=== PATIENT | female | born 2000 | race Caucasian/White ===

== ENCOUNTER 2019-09-14 13:32 | Outpatient (CLI) | payer OTHER, SELFPAY ==
--- NOTE | 2019-09-14 13:43 | CT_ITS ---
WS: [id number] CT ABDOMEN PELVIS TECHNIQUE: Contrast-enhanced CT of the abdomen and pelvis with coronal and sagittal reformatted image s. CLINICAL INFORMATION: RLQ ABDOMINAL PAIN COMPARISON: March 06, 2019 DLP: 572.[address] scans at [facility] use at least one of these dose optimization techniques: automat ed exposure control; mA and/or kV adjustment per patient size (includes targeted exams where dose is matched to clinical indication); or iterative reconstruction. FINDINGS: Liver is normal in appearance. Normal portal vein and splenic vein. Cholecystectomy clips. Normal spl een. Normal gastroesophageal junction. Lung bases are well aerated. Adrenal glands are normal. Normal caliber abdominal aorta. Normal renal parenchymal enhancement. No hydronephrosis. No abdominal lymphadenopathy. IUD appears in normal position. Small amount of free fluid in the cul-d e-sac. Enhancing right ovarian cyst measuring 2.4 x 2.7 CM. Multifollicular left ovary with dominant follicl e measuring 14 mm. Sigmoid diverticulosis. No evidence of acute diverticulitis. Appendix is not defin itely visualized although no evidence of acute appendicitis. Low-lying cecum in the pelvis. CT/CT abdomen pelvis w con* [id number] IMPRESSION: 1. Enhancing right ovarian hemorrhagic or corpus luteum cyst. Small amount of fluid in the cul-de-sac. Ovarian cyst measures 2.4 x 2.7 cm. 2. IUD appears in normal position. 3. Normal bilateral renal parenchymal enhancement. No hydronephrosis. 4. Appendix is not visualized. No evidence of acute appendicitis. 5. Cholecystectomy clips. 6. Sigmoid diverticulosis. No evidence of acute diverticulitis.
[2019-09-14] MEDS: iohexol 300 mg/mL 50 mL Btl PO (15:19)
[2019-09-14] MEDS: iohexol 300 mg/mL 100 mL Btl 95 ML IV (15:35)
== END 2019-09-14 13:33 | disposition home or self-care (01) ==
LOC: RAD 13:34
PROVIDERS: Family Provider Family Medicine; PCP Family Medicine; Visit Provider Physician Assistant
DX: N83.209 Unspecified ovarian cyst, unspecified side (principal); K57.30 Diverticulosis of large intestine without perforation or abscess without bleeding
CPT/HCPCS: 74177

== ENCOUNTER 2019-09-15 15:34 | Emergency (ER) | payer OTHER, SELFPAY ==
[2019-09-15] VITALS (16 sets, daily range): BP systolic 93–112; BP diastolic 50–82; PULSE 68–119; RESP 18; TEMP 36.7; O2SAT 96–100; BMI 22.8
--- NOTE | 2019-09-15 15:45 | USR_ITS ---
PROCEDURE INFORMATION: Exam: US Pelvis Complete, Transabdominal Exam date and time: 09/15/2019 4:14 PM Age: 19 years old Clinical indication: Pelvic pain; Patient HX: Iud in place. Pain for several days; Additional info: Abd pain. Non latex probe cover used for tv exam TECHNIQUE: Imaging protocol: Real-time transabdominal pelvic ultrasound with image documentation. Complete exam. COMPARISON: CT abdomen pelvis w con* [id number] 09/14/2019 3:45 PM FINDINGS: Uterus/cervix: The uterus measures 6.4 x 2.6 x 3.6 cm. Endometrial thickness 4.9 mm. IUD in the fundal endometrium. Right adnexa: The right ovary measures 5.1 x 4.2 x 3.0 cm and contains a 2.7 cm dominant follicle and small follicles. Left adnexa: The left ovary measures 2.5 x 2.7 x 3.4 cm. Normal Doppler flow and follicles. 1.5 cm hemorrhagic follicle versus corpus luteum. Free fluid: None. Bladder: Normal. US/US pelvic complete* [id number] IMPRESSION: 1. 2.7 cm simple dominant follicle in the right ovary. This requires no follow-up. 2. 1.5 cm hemorrhagic follicle versus corpus luteum in the right ovary. This requires no follow-up.
--- NOTE | 2019-09-15 16:01 | ED_ITS ---
Entered by Mihaela Viveros, acting as scribe for Michael Raymundo MD, [facility] Sep 15, 2019 15:34 HPI - Abdominal Pain General: Chief Complaint: Abdominal Pain Stated Complaint: RIGHT SIDE PAIN Time Seen by Provider: 09/15/19 16:01 Source: patient Mode of arrival: ambulatory Limitations: no limitations History of Present Illness: HPI narrative: 19 yo Female presents to ED with complaint of abdominal pain, nausea, and vomiting. Pt states that she has had this pain since 0200 yesterday morning. Pt states that she went to [facility] and was sent to [facility] to get an out patient CT done. Pt states that she has called [facility] 3 times today to get the results but was told that the provider wasn't in and she had not gotten the results. Pt states that she came in to try to find out what is causing her pain and vomiting. MD elicited complaint: abdominal pain Onset (ago): day(s) Pain Consistency: constant Location: RLQ Pain scale (0-10): 4 Radiation: R flank Migration to: no migration Exacerbating factors: movement Relieving factors: nothing Associated Symptoms: Reports nausea and vomiting; Denies chills, dysuria and fever(s) Related Data: Date of Last Menstrual Period: 07/31/19 Review of Systems General: Reports: 10 or more systems reviewed and unremarkable except in HPI and below Const: Denies: fever, chills or body aches Eyes: Denies: change in vision, blurry vision or blind spots ENMT: Denies: throat pain, enlarged tonsils, painful swallowing, hoarseness, mouth pain or swelling of lips/tongue Card: Denies: chest pain, palpitations, irregular heart rhythm, edema or swelling of feet/ankles Resp: Denies: shortness of breath, productive cough or non-productive cough GI: Reports: abdominal pain, nausea and vomiting : Denies: flank pain, difficulty urinating, painful urination, urinary frequency, urinary urgency or urinary hesitancy Musc: Denies: neck pain, back pain, extremity pain, extremity swelling or joint pain Skin/Breast: Denies: rash, itching or redness Neuro: Denies: headache, numbness in extremities or weakness in extremities Endo: Denies: excessive urination, excessive thirst or tired all the time PFSH ED PFSH: Statuses (acute, chronic, etc) shown below reflect problem list status as previously entered and may not be historically accurate Social History Smoking and tobacco status: never smoked Female Reproductive History: Date of last menstrual period: 07/31/19 Physical Exam Const: COMMON NORMALS: average body habitus, oriented x3, no limitations, healthy appearing, alert and well nourished GENERAL APPEARANCE: in distress (Painful) HENMT: COMMON NORMALS: normocephalic, head/scalp atraumatic and moist oral mucous membranes HEAD & SCALP: normocephalic and atraumatic Eye: COMMON NORMALS: PERRL, EOMs intact bilaterally, conjunctivae normal and no scleral icterus CONJUNCTIVA: Yes conjunctivae normal PUPIL: Yes PERRL Neck/C-Spine: COMMON NORMALS: full ROM, supple, no meningeal signs, no JVD and no carotid bruits Chest: COMMONS NORMALS: inspection of chest normal and palpation of chest normal Resp: COMMON NORMALS: normal respiratory effort, no retractions, no use of accessory muscles, clear to auscultation bilaterally and percussion normal AUSCULTATION: clear to auscultation bilaterally PERCUSSION: percussion normal Cardio: COMMON NORMALS: no JVD, regular rate, regular rhythm, S1 normal heart sound, S2 normal heart sound, no gallops, no clicks, no murmurs, no rub and peripheral pulses 2+ throughout RATE: regular rate RHYTHM: regular rhythm HEART SOUNDS: S1 normal and S2 normal PERIPHERAL PULSES: pulses 2+ throughout GI: COMMON NORMALS: normal to inspection, nondistended, normoactive bowel sounds, soft to palpation, no hepatosplenomegaly, no masses and no bruits PALPATION: Yes soft, Yes tender Details: RLQ, Yes guarding, No rigid and Yes no hepatosplenomegaly : COMMON NORMALS: Yes no CVA tenderness BLADDER/KIDNEY EXAM: Yes no CVA tenderness Back/Pelvis: COMMON NORMALS: no CVA tenderness Extremity: COMMON NORMALS: normal to inspection, full ROM, normal capillary refill, no calf tenderness and no pedal edema Neuro: COMMON NORMALS: oriented x3 SENSORIUM/ORIENTATION: Yes alert MENINGEAL SIGNS: Yes no meningeal signs Skin: COMMON NORMALS: no rashes or lesions noted, no wounds, skin turgor normal, no jaundice, no petechiae and no mottling GENERAL SKIN EXAM: no rashes or lesions noted and turgor normal Course Reevaluation(s): Reevaluation #1: Pain relieved following fentanyl injection. She is currently pain-free. She is ready to go home. Time: 21:10 Vital Signs: Vital signs: Vital Signs Temperature 98.1 F 09/15/19 15:39 Pulse Rate 94 09/15/19 20:49 Respiratory Rate 18 09/15/19 20:49 Blood Pressure 93/54 09/15/19 20:49 Pulse Oximetry 97 09/15/19 20:49 MDM - Abdominal Pain MDM Narrative: Medical decision making narrative: 19-year-old female patient who presents to the emergency department with right lower quadrant pain. She was seen by her primary care provider yesterday for the same thing and she was sent for a CT scan of her abdomen. She had not received the results today despite calling her primary care provider's office several times. She therefore came to the emergency department to obtain the results. She was doing quite a bit of pain. Ultrasound done in the ED today showed an ovarian cyst without rupture. Same thing that was resulted on her CT scan. She was given intravenous Toradol which did not help her pain but her pain was relieved following and intravenous dose of fentanyl. She remained stable and vital signs remained stable throughout her ED stay. She will be discharged home on a short course of narcotics. She voiced understanding and is in agreement with the plan. She will follow-up with her primary care provider Medical Records: Attestation: I reviewed the patient's medical records. Lab Data: Attestation: I reviewed the patient's lab results. Labs: Lab Results 09/15/19 09/15/19 09/15/19 Range/Units 16:09 16:18 16:18 WBC 5.1 (4.0-10.0) 10^3/ uL RBC 4.97 (4.1-5.3) 10^6/u L Hgb 14.0 (11.5-15.3) g/dL Hct 42.5 (37.0-47.0) % MCV 85.5 (81-99) fL MCH 28.2 (28.0-34.0) pg MCHC 32.9 (30.0-36.0) g/dL RDW 12.5 (12.1-15.1) % Plt Count 178 (130-400) 10^3/c mm MPV 12.2 H (7.4-10.4) fL Neut % (Auto) 55.0 % Lymph % (Auto) 37.4 % Lyman % (Auto) 6.0 % Eos % (Auto) 1.4 % Baso % (Auto) 0.2 % Neut # (Auto) 2.8 (1.8-7.7) 10^3/u L Lymph # (Auto) 1.9 (0.8-4.8) 10^3/u L Lyman # (Auto) 0.3 (0.2-0.9) 10^3/u L Eos # (Auto) 0.1 (0.0-0.8) 10^3/u L Baso # (Auto) 0.0 (0.0-0.1) 10^3/u L Nucleated RBC % (a uto) 0 % Nucleated RBCs # 0.0 /100WBC Sodium 138 (136-145) mmol/L Potassium 3.8 (3.5-5.1) mmol/L Chloride 101 (98-107) mmol/L Carbon Dioxide 24 (22-29) mmol/L Anion Gap 16.8 (5-19) BUN 11 (6-20) mg/dL Creatinine 0.7 (0.5-0.9) mg/dL GFR Calculation 105.6 (90-130) mL/min Glucose 80 (74-109) mg/dL Calcium 10.4 (8.5-10.5) mg/dL Total Bilirubin 0.7 (0.15-1.2) mg/dL AST 15 (0-32) U/L ALT 8 (0-33) U/L Alkaline Phosphata se 67 (35-105) IU/L Total Protein 8.1 (6.6-8.7) g/dL Albumin 4.7 (3.5-5.2) g/dL Globulin 3.4 (1.3-4.6) g/dL Lipase 14 (13-60) U/L HCG, Qual (Negative) Urine Color Yellow (Yellow) Urine Appearance Clear (CLEAR) Urine pH 5 (5-7) Ur Specific Gravit y 1.025 (1.005-1.030) Urine Protein Neg (Negative) Urine Glucose (UA) Norm (Normal) Urine Ketones 1+ H (Negative) Urine Occult Blood 3+ H (Negative) Urine Nitrate Negative (Negative) Urine Bilirubin 1+ H (NEGATIVE) Urine Urobilinogen Norm (Negative) mg/dL Ur Leukocyte Norma ase Negative (Negative) Urine RBC 0-4 H (0-2) /hpf Urine WBC 0-4 H (0-5) /hpf Ur Squamous Epith Cells 10-15 H (0-5) Urine Bacteria 2+ H (NONE) 09/15/19 Range/Units 16:18 WBC (4.0-10.0) 10^3/ uL RBC (4.1-5.3) 10^6/u L Hgb (11.5-15.3) g/dL Hct (37.0-47.0) % MCV (81-99) fL MCH (28.0-34.0) pg MCHC (30.0-36.0) g/dL RDW (12.1-15.1) % Plt Count (130-400) 10^3/c mm MPV (7.4-10.4) fL Neut % (Auto) % Lymph % (Auto) % Lyman % (Auto) % Eos % (Auto) % Baso % (Auto) % Neut # (Auto) (1.8-7.7) 10^3/u L Lymph # (Auto) (0.8-4.8) 10^3/u L Lyman # (Auto) (0.2-0.9) 10^3/u L Eos # (Auto) (0.0-0.8) 10^3/u L Baso # (Auto) (0.0-0.1) 10^3/u L Nucleated RBC % (a uto) % Nucleated RBCs # /100WBC Sodium (136-145) mmol/L Potassium (3.5-5.1) mmol/L Chloride (98-107) mmol/L Carbon Dioxide (22-29) mmol/L Anion Gap (5-19) BUN (6-20) mg/dL Creatinine (0.5-0.9) mg/dL GFR Calculation (90-130) mL/min Glucose (74-109) mg/dL Calcium (8.5-10.5) mg/dL Total Bilirubin (0.15-1.2) mg/dL AST (0-32) U/L ALT (0-33) U/L Alkaline Phosphata se (35-105) IU/L Total Protein (6.6-8.7) g/dL Albumin (3.5-5.2) g/dL Globulin (1.3-4.6) g/dL Lipase (13-60) U/L HCG, Qual Negative (Negative) Urine Color (Yellow) Urine Appearance (CLEAR) Urine pH (5-7) Ur Specific Gravit y (1.005-1.030) Urine Protein (Negative) Urine Glucose (UA) (Normal) Urine Ketones (Negative) Urine Occult Blood (Negative) Urine Nitrate (Negative) Urine Bilirubin (NEGATIVE) Urine Urobilinogen (Negative) mg/dL Ur Leukocyte Norma ase (Negative) Urine RBC (0-2) /hpf Urine WBC (0-5) /hpf Ur Squamous Epith Cells (0-5) Urine Bacteria (NONE) Imaging Data ^: US: Radiologist's impression: [place] [address] Ultrasound Report Signed Patient: Sherri Gomez AUnit #: [id number] : 2000Acct#:[id number] Age/Sex: 19 FADM Date: 09/15/19 [facility]: Attending Dr: Ordering Provider/Ordering MD: Silviano Fuentes MD Date of Service: 09/15/19 Procedure(s): US pelvic complete* [id number] Accession Number(s): [id number] Report Number: [id number] PROCEDURE INFORMATION: Exam: US Pelvis Complete, Transabdominal Exam date and time: 09/15/2019 4:14 PM Age: 19 years old Clinical indication: Pelvic pain; Patient HX: Iud in place. Pain for several days; Additional info: Abd pain. Non latex probe cover used for tv exam TECHNIQUE: Imaging protocol: Real-time transabdominal pelvic ultrasound with image documentation. Complete exam. COMPARISON: CT abdomen pelvis w con* [id number] 09/14/2019 3:45 PM FINDINGS: Uterus/cervix: The uterus measures 6.4 x 2.6 x 3.6 cm. Endometrial thickness 4.9 mm. IUD in the fundal endometrium. Right adnexa: The right ovary measures 5.1 x 4.2 x 3.0 cm and contains a 2.7 cm dominant follicle and small follicles. Left adnexa: The left ovary measures 2.5 x 2.7 x 3.4 cm. Normal Doppler flow and follicles. 1.5 cm hemorrhagic follicle versus corpus luteum. Free fluid: None. Bladder: Normal. US/US pelvic complete* [id number] IMPRESSION: 1. 2.7 cm simple dominant follicle in the right ovary. This requires no follow-up. 2. 1.5 cm hemorrhagic follicle versus corpus luteum in the right ovary. This requires no follow-up. Dictated By:Elijah Tejeda Signed By:Elijah TejedaSignwyatt Date/Time:09/15/191826 DD/ 26 Discharge Plan Discharge Patient Disposition: Home, Self-Care Clinical Impression: Ovarian cyst Qualifiers: Laterality: right Qualified Code(s): N83.201 - Unspecified ovarian cyst, right side Condition: Stable Prescriptions: New hydrocodone-acetaminophen 5-325 mg tablet 1 tab PO Q6H PRN (Reason: pain) Qty: 14 RF: 0 Continued Aimovig Autoinjector 70 mg/mL auto-injector 70 mg SUBCUT Q30D RF: 0 Discharge Orders: Discharge Order (Routine); Ordered 09/15/19 Ordered By: Michael Raymundo Referrals: Davion Wild MD [Primary Care Provider] - 7-10 days Patient Instructions: Ovarian Cyst (ED) Activity Restrictions/Additional Instructions: Return for any new or worsening symptoms. Follow-up with your primary care provider within 1 week. Take the pain medication as needed for severe pain. Take ibuprofen as needed for mild to moderate pain. Coding Level of Care Code ED Automatic Thread Winder for Chg Fwd Exam Problem Focused The documentation recorded by the Felice gallardo Carmen, accurately reflects the service I personally performed and the decisions made by Breanne diop Adegoke I, MD, [facility] Sep 15, 2019 15:34
--- NOTE | 2019-09-15 16:45 | PC.NURSE ---
us in room for us patient tolerating well
[2019-09-15 16:47] LABS: Basophils % 0.2 %; Eosinophils # 0.1 10^3/uL (0.0-0.8); Eosinophils % 1.4 %; Hematocrit 42.5 % (37.0-47.0); Lymphocytes # 1.9 10^3/uL (0.8-4.8); Lymphocytes % 37.4 %; Mean Corpuscular HGB Conc 32.9 g/dL (30.0-36.0); Mean Corpuscular Hemoglobin 28.2 pg (28.0-34.0); Mean Corpuscular Volume 85.5 fL (81-99); Mean Platelet Volume 12.2 fL (7.4-10.4); Monocytes # 0.3 10^3/uL (0.2-0.9); Neutrophils # 2.8 10^3/uL (1.8-7.7); Nucleated Red Blood Cells % 0 %; Platelet Count 178 10^3/cmm (130-400); Red Blood Count 4.97 10^6/uL (4.1-5.3); Red Cell Distribution Width 12.5 % (12.1-15.1); White Blood Count 5.1 10^3/uL (4.0-10.0)
[2019-09-15 16:58] LABS: Blood Urine 3+ (Negative); Glucose Urine UA Norm (Normal); Ketones Urine 1+ (Negative); Protein Urine Neg (Negative); Specific Gravity, Urine 1.025 (1.005-1.030); Urine Appearance Clear (CLEAR); Urine Color Yellow (Yellow); pH Urine 5 (5-7)
[2019-09-15 16:59] LABS: Add Urine Culture? No; Add Urine Microscopic? YES; Bacteria Urine 2+; Bilirubin Urine 1+ (NEGATIVE); Leukocyte Esterase Urine Negative (Negative); Nitrate Urine Negative (Negative); RBC Urine 0-4 /hpf (0-2); Urobilinogen Urine Norm (Negative); WBC Urine 0-4 /hpf (0-5)
[2019-09-15] MEDS: ondansetron 2 mg/ML SDV 2 mL 4 MG IVP (17:00)
[2019-09-15 17:03] LABS: HCG, Serum Qual Negative (Negative)
[2019-09-15 17:07] LABS: Alanine Aminotransferase 8 U/L (0-33); Albumin Level 4.7 g/dL (3.5-5.2); Alkaline Phosphatase 67 IU/L (35-105); Anion Gap 16.8 (5-19); Aspartate Amino Transferase 15 U/L (0-32); Blood Urea Nitrogen 11 mg/dL (6-20); Calcium 10.4 mg/dL (8.5-10.5); Carbon Dioxide 24 mmol/L (22-29); Chloride 101 mmol/L (98-107); Globulin 3.4 g/dL (1.3-4.6); Glomerular Filtration Rate 105.6 mL/min (90-130); Glucose 80 mg/dL (74-109); Lipase 14 U/L (13-60); Potassium 3.8 mmol/L (3.5-5.1); Sodium 138 mmol/L (136-145); Total Bilirubin 0.7 mg/dL (0.15-1.2); Total Protein 8.1 g/dL (6.6-8.7)
[2019-09-15] MEDS: ketorolac 30 mg/mL INJ IVP (17:13)
[2019-09-15] MEDS: sodium chloride 0.9% 1,000 ML 999 ML IV (17:24)
--- NOTE | 2019-09-15 19:00 | PC.NURSE ---
report rec'd from 7a cheli Chavez RN
[2019-09-15] MEDS: fentaNYL 50 mcg/mL INJ 2mL IVP (20:48)
== END 2019-09-15 21:55 | disposition home or self-care (01) ==
PROVIDERS: Physician Assistant; Emergency Provider Family Medicine; Family Provider Family Medicine; PCP Family Medicine
DX: N83.201 Unspecified ovarian cyst, right side (principal)
CPT/HCPCS: 36415; 76856; 80053; 81001; 83690; 84703; 85025; 96360; 96374; 96375; 99283; 99284; A9270; J1885; J2405; J3010; J7030

== ENCOUNTER 2020-02-12 20:46 | Emergency (ER) | payer OTHER, SELFPAY ==
[2020-02-12 20:52] VITALS: BP 110/76; PULSE 97; RESP 16; TEMP 36.8; O2SAT 97; BMI 25.6
--- NOTE | 2020-02-12 21:12 | W.ED.HA ---
HPI - Headache General: Chief Complaint: Headache Stated Complaint: smith Time Seen by Provider: 02/12/20 21:07 Source: patient Mode of arrival: ambulatory Limitations: no limitations History of Present Illness: HPI Narrative: Patient comes in with migraine. Patient reports starting this morning. Patient took her medication for abortive therapy but it did not work for her. Patient then tried some Tylenol without much relief. Patient took a nap to see if she could sleep it off but when she awakened she was throwing up and then came to the ER. Patient appears well. Patient appears in mild to moderate pain. Patient does report that she has pretty good control with her preventative medication but has an occasional breakthrough this is just been her worse when she has had and over a year. elicited complaint: migraine Review of Systems General: Reports: 10 or more systems reviewed and unremarkable except in HPI and below Neuro: Reports: headache(s) [facility] ED PFSH: Social History Smoking and tobacco status: never smoked Female Reproductive History: Date of last menstrual period: 07/31/19 Physical Exam Const: COMMON NORMALS: no acute distress and patient oriented x3 GENERAL APPEARANCE: cooperative HENMT: COMMON NORMALS: normocephalic and Normal external nose present HEAD & SCALP: normal to inspection and normocephalic NOSE: Normal external nose present MOUTH: Normal oral and palatal mucosa present Eye: GENERAL EYE: appearance normal, both eyes and all related structures Neck/C-Spine: COMMON NORMALS: full ROM Chest: COMMONS NORMALS: normal inspection of the chest Resp: COMMON NORMALS: normal respiratory effort EFFORT & INSPECTION: Yes able to speak in complete sentences Cardio: COMMON NORMALS: regular rate and regular rhythm RATE: regular rate RHYTHM: regular rhythm GI: COMMON NORMALS: non-tender Back/Pelvis: COMMON NORMALS: thoracic and lumbar spine normal to inspection Extremity: COMMON NORMALS: normal to inspection Neuro: COMMON NORMALS: patient oriented x3 and moves all extremities Psych: COMMON NORMALS: mental status grossly normal and cooperative Skin: COMMON NORMALS: no rashes or lesions noted GENERAL SKIN EXAM: no rashes or lesions noted Course Vital Signs: Vital signs: Vital Signs Temperature 98.2 F 02/12/20 20:52 Pulse Rate 97 02/12/20 20:52 Respiratory Rate 16 02/12/20 20:52 Blood Pressure 110/76 02/12/20 20:52 Pulse Oximetry 97 02/12/20 20:52 MDM - Headache MDM Narrative: Medical decision making narrative: Patient comes in today for complaints of migraine headache. Exam noted no focal neural deficits. Vital signs were normal. Differential diagnosis includes but not limited to migraine headache, tension headache, malingering. Patient was treated for migraine with IV fluids, dexamethasone, Reglan, diphenhydramine. Patient had relief of headache. Reviewed need for follow-up or return to the ER. Patient reported. Discharge Plan Discharge Patient Disposition: Home, Self-Care Clinical Impression: Migraine Qualifiers: Migraine type: unspecified Status migrainosus presence: without status migrainosus Intractability: not intractable Qualified Code(s): G43.909 - Migraine, unspecified, not intractable, without status migrainosus Condition: Stable Prescriptions: No Action Aimovig Autoinjector 70 mg/mL auto-injector 70 mg SUBCUT Q30D RF: 0 hydrocodone-acetaminophen 5-325 mg tablet 1 tab PO Q6H PRN (Reason: pain) Qty: 14 RF: 0 Discharge Orders: Discharge Order (Routine); Ordered 02/12/20 Ordered By: Marky Sun Referrals: Dolores Jurado FNP [Primary Care Provider] - Discharge Diet: Usual diet Discharge Activity: Increase activity as tolerated Patient Instructions: Migraine Headache (ED) Activity Restrictions/Additional Instructions: Home and rest. Activity as tolerated. Drink plenty of fluids including water follow-up with primary care. The ER for worsening symptoms or new concerns. Coding Level of Care Code ED Welder Machine Operator for Chg Fwd Exam Comprehensive
[2020-02-12] MEDS: diphenhydrAMINE 50 mg/mL SDV 1mL 25 MG IVP (21:56)
[2020-02-12] MEDS: dexamethasone 10 mg/mL INJ IVP (21:57)
[2020-02-12] MEDS: sodium chloride 0.9% 500 ML 999 ML IV (21:57)
[2020-02-12] MEDS: metoclopramide 5 mg/mL SDV 2 mL 10 MG IVP (21:57)
[2020-02-12 23:18] VITALS: BP 106/72; PULSE 16; RESP 74; O2SAT 99
== END 2020-02-12 23:20 | disposition home or self-care (01) ==
PROVIDERS: Emergency Provider Nurse Practitioner Family; PCP Nurse Practitioner
DX: G43.909 Migraine, unspecified, not intractable, without status migrainosus (principal)
CPT/HCPCS: 12345; 96374; 96375; 99281; 99283; J1100; J1200; J2765; J7040

== ENCOUNTER → 2020-02-26 16:10 | Outpatient (BNVA) | payer OTHER, SELFPAY | PROVIDERS: PCP Nurse Practitioner; Visit Provider Obstetrics & Gynecology | DX: Z12.4 Encounter for screening for malignant neoplasm of cervix (principal); Z20.2 Contact with and (suspected) exposure to infections with a predominantly sexual mode of transmission; N94.0 Mittelschmerz | CPT/HCPCS: 87491; 87591; 88175 ==

== ENCOUNTER → 2020-05-01 15:54 | Outpatient (BNVA) | payer OTHER, SELFPAY | PROVIDERS: PCP Nurse Practitioner; Visit Provider Nurse Practitioner | DX: R50.9 Fever, unspecified (principal) | CPT/HCPCS: 87880 ==

== ENCOUNTER 2020-06-02 21:09 | Emergency (ER) | payer OTHER, SELFPAY ==
--- NOTE | 2020-06-02 21:19 | ED_ITS ---
HPI - URI/Sore Throat General: Stated Complaint: COVID SYMPTOMS Time Seen by Provider: 06/02/20 21:11 Source: patient Mode of arrival: ambulatory Limitations: no limitations History of Present Illness: HPI Narrative: 20-year-old female states she had a cough along with fever and slight dyspnea over the last 2 to 3 days. She states she had a temperature up to 101. States she had a slight sharp chest pain as well when she coughs. She is concerned about possible coronavirus infection. She denies any vomiting or diarrhea. Patient here is well-appearing with normal vital signs and has a pulse ox of 99% on room air. Associated symptoms: Reports fever(s); Deny abdominal pain, chest pain, diarrhea, headache(s), nausea or vomiting Review of Systems Const: Reports: fever(s) Eyes: Denies: blurry vision or eye discomfort ENMT: Denies: throat pain or dental pain Card: Denies: chest pain Resp: Reports: non-productive cough GI: Denies: abdominal pain, nausea, vomiting or diarrhea : Denies: dysuria Musc: Denies: neck pain or back pain Skin/Breast: Denies: rash Neuro: Denies: headache(s) Psych: Denies: depression Leonel/Lymph: Denies: easy bruising All/Imm: Denies: urticaria PFSH ED PFSH: Medical History Anxiety Asthma Depression Migraine without aura Surgical History History of laparoscopic cholecystectomy (~07/2017) History of tonsillectomy Status post myringotomy with insertion of tube Family History Grandmother Cancer Lung disease Stroke Grandfather Diabetes Maternal Cancer Lung disease COPD Mother Psychiatric illness Depression and anxiety Sister Psychiatric illness Depression and anxiety Social History Smoking and tobacco status: never smoked Alcohol intake: never Other details last substance use: Denies drug use Female Reproductive History: Date of last menstrual period: 07/31/19 Physical Exam Const: COMMON NORMALS: no acute distress, patient oriented x3 and healthy appearing HENMT: COMMON NORMALS: normocephalic and atraumatic HEAD & SCALP: normocephalic and atraumatic Eye: COMMON NORMALS: Equal, round and reactive pupils present and EOMs intact bilaterally PUPIL: Yes Equal, round and reactive pupils present Neck/C-Spine: COMMON NORMALS: full ROM and supple Chest: COMMONS NORMALS: normal inspection of the chest and normal palpation of entire chest wall Resp: COMMON NORMALS: normal respiratory effort, No retractions, No use of accessory muscles and clear to auscultation bilaterally AUSCULTATION: clear to auscultation bilaterally Cardio: COMMON NORMALS: regular rate, regular rhythm and No murmurs present (Cardio) RATE: regular rate RHYTHM: regular rhythm GI: COMMON NORMALS: Normal to inspection, nondistended, normoactive bowel sounds present, Soft to palpation, non-tender and no masses PALPATION: Yes Soft to palpation Extremity: COMMON NORMALS: normal to inspection and full ROM Neuro: COMMON NORMALS: patient oriented x3, moves all extremities and no focal motor deficits Psych: COMMON NORMALS: mental status grossly normal, Normal thought process present and cooperative THOUGHT PROCESS: Normal thought process present Skin: COMMON NORMALS: no rashes or lesions noted and no wounds GENERAL SKIN EXAM: no rashes or lesions noted MDM - URI/Sore Throat MDM Narrative: Medical decision making narrative: Patient presents here with likely upper respiratory infection and possible Covid infection. She is well- appearing here and is not tachycardic and has has no hypoxia. She has no signs of pulmonary embolism. Patient is stable for discharge and is to follow-up PCP in 3 to 5 days return to ER if worsening. She is to self quarantine until Covid results. Discharge Plan Discharge Patient Disposition: Home Clinical Impression: Suspected 2019-nCoV infection Condition: Stable Prescriptions: No Action albuterol sulfate [ProAir HFA] 90 mcg/actuation HFA aerosol inhaler 2 puff INHALATION Q6H PRNRF: 0 Amanda 14 mcg/24 hrs (3 yrs) 13.5 mg intrauterine device INTRAUTERI RF: 0 Nurtec ODT 75 mg tablet,disintegrating PO RF: 0 azithromycin 250 mg tablet See Rx Instructions PO .COMPLEX Qty: 6 RF: 0 metronidazole 500 mg tablet 500 mg PO BID 5 Days Qty: 10 RF: 0 Aimovig Autoinjector 70 mg/mL auto-injector 70 mg SUBCUT Q30D RF: 0 Discharge Orders: Discharge Order (Routine); Ordered 06/02/20 Ordered By: Silviano Fuentes Referrals: Yue Wahl DO [Primary Care Provider] - 1-3 days Discharge Diet: Advance as tolerated Discharge Activity: Resume usual activity Patient Instructions: Upper Respiratory Infection (ED) Coding Level of Care Code ED Health Program Manager for Hanny Curry
[2020-06-02 21:20] VITALS: PULSE 108; RESP 20; TEMP 38.3; O2SAT 100; BMI 24.7
[2020-06-02 21:25] VITALS: BP 109/70
[2020-06-02 21:33] VITALS: O2SAT 100
[2020-06-04 18:53] LABS: Quest SARS-CoV-2 RNA DETECTED (NOT DETECTED)
--- NOTE | 2020-06-05 09:57 | PC.NURSE ---
Pt called and notified of positive COVID result.
== END 2020-06-02 21:33 | disposition home or self-care (01) ==
PROVIDERS: Emergency Provider Emergency Medicine; PCP Family Medicine
DX: U07.1 COVID-19 (principal); Z20.828 Contact with and (suspected) exposure to other viral communicable diseases
CPT/HCPCS: 12345; 87635; 99282

== ENCOUNTER → 2020-08-28 18:27 | Outpatient (BNVA) | payer OTHER, SELFPAY | PROVIDERS: PCP Family Medicine; Visit Provider Family Medicine | DX: Z11.59 Encounter for screening for other viral diseases (principal) | CPT/HCPCS: 87635 ==

== ENCOUNTER 2020-09-01 19:58 | Emergency (ER) | payer OTHER, SELFPAY ==
[2020-09-01 21:17] VITALS: BP 100/70; PULSE 111; RESP 18; TEMP 37.4; O2SAT 100; BMI 23.8
--- NOTE | 2020-09-01 23:31 | W.ED.NAVMDI ---
HPI - Nausea/Vomiting/Diarrhea General: Chief complaint: Nausea/Vomiting/Diarrhea Stated complaint: migraine/n/v Time Seen by Provider: 09/01/20 23:01 Source: patient Mode of arrival: ambulatory Limitations: no limitations History of Present Illness: HPI Narrative: Patient is a 20-year-old female who presents to ED today with complaint of nausea, vomiting, weakness, fever of up to 101. Patient tells me a week ago she was sick with similar symptoms. She states on Wednesday she underwent COVID testing which she states was negative. She states around 4:30 PM this evening she began having severe nausea and has had several episodes of non-bloody vomit. Patient feeling weak and dizzy. She is having normal bowel movements. Denies urinary symptoms. She has having some upper abdominal pain. MD elicited complaint: nausea, vomiting, diarrhea, abdominal pain and flank pain Onset (ago): day(s) Associated nausea: Yes Associated abdominal pain: Yes Location of pain: Epigastric, LUQ and RUQ Associated symtoms: Reports dizziness and nausea; Denies change in vision, chest pain, dysuria, fatigue, headache(s), malaise, palpitations or syncope Review of Systems Const: Reports: fever(s); Denies: chills, body aches, fatigue or malaise Eyes: Denies: change in vision or blurry vision ENMT: Denies: odynophagia Card: Denies: chest pain, palpitations, irregular heart rhythm, lightheadedness, syncope or dyspnea on exertion Resp: Denies: dyspnea, productive cough or pain on inspiration GI: Reports: abdominal pain, nausea and vomiting; Denies: diarrhea or change in stool character : Denies: flank pain, difficulty voiding, dysuria, urinary frequency, urinary urgency or urinary hesitancy Musc: Denies: neck pain, back pain or joint pain Skin/Breast: Denies: rash Neuro: Reports: dizziness; Denies: headache(s), numbness in extremities, weakness in extremities, sensory changes or difficulty walking PFS ED PFSH: Medical History Anxiety Asthma Depression History of 2019 novel coronavirus disease (COVID-19) Migraine without aura Surgical History History of laparoscopic cholecystectomy (~07/2017) History of tonsillectomy Status post myringotomy with insertion of tube Family History Grandmother Cancer Lung disease Stroke Grandfather Diabetes Maternal Cancer Lung disease COPD Mother Psychiatric illness Depression and anxiety Sister Psychiatric illness Depression and anxiety Social History Smoking and tobacco status: never smoked Alcohol intake: never Other details last substance use: Denies drug use Female Reproductive History: Date of last menstrual period: 07/31/19 Physical Exam Const: COMMON NORMALS: average body habitus, patient oriented x3, healthy appearing, alert and well nourished GENERAL APPEARANCE: cooperative ORIENTATION/CONSCIOUSNESS: Yes awake, Yes oriented to person, Yes oriented to place and Yes oriented to time OTHER: looks like she doesn't feel well HENMT: COMMON NORMALS: normocephalic and atraumatic HEAD & SCALP: normocephalic and atraumatic Resp: COMMON NORMALS: normal respiratory effort and clear to auscultation bilaterally AUSCULTATION: clear to auscultation bilaterally Cardio: COMMON NORMALS: regular rhythm RATE: tachycardic (mild) RHYTHM: regular rhythm GI: COMMON NORMALS: Normal to inspection, nondistended, normoactive bowel sounds present, Soft to palpation, No hepatosplenomegaly present and no masses PALPATION: Yes Soft to palpation, Yes Tenderness to palpation present (GI) (mild-throughout upper abdomen) and Yes No hepatosplenomegaly present : BLADDER/KIDNEY EXAM: Yes CVA tenderness on the right (mild) Back/Pelvis: GENERAL BACK: Yes CVA tenderness Extremity: COMMON NORMALS: normal to inspection GENERAL: Yes normal exam except as noted Neuro: ANA LAURA COMA SCALE: document GCS findings [place] coma scale eye opening: Spontaneous Ana Laura coma scale verbal response: Orientated [place] coma scale motor response: Obey commands Ana Laura coma scale total score: 15 COMMON NORMALS: patient oriented x3 SENSORIUM/ORIENTATION: Yes alert, Yes oriented to person, Yes oriented to place and Yes oriented to time Skin: COMMON NORMALS: no rashes or lesions noted GENERAL SKIN EXAM: no rashes or lesions noted Course Vital Signs: Vital signs: Vital Signs Temperature 103 F H 09/01/20 23:46 Pulse Rate 87 09/02/20 02:10 Respiratory Rate 16 09/02/20 02:10 Blood Pressure 116/87 09/02/20 02:10 Pulse Oximetry 99 09/02/20 02:10 MDM - Nausea/Vomiting/Diarrhea MDM Narrative: Medical decision making narrative: Re-evaluation reveals patient appearing much improved over her initial exam. She states her nausea and vomiting is much better. Patient is requesting to go home. Her initial tachycardia has resolved. Blood pressure improved. Nurses did report a fever of 103 however when they took this patient was bundled under 5-6 layers of clothes in warm blankets. Patient had very minimal abdominal tenderness. She did not warrant emergent CT imaging at this time. CBC and CMP overall are non-concerning. She had a mild elevation in her lactate at 2.4. Flu and COVID are negative. Patient states she feels comfortable going home and would like a prescription for the Reglan. Return to ED precautions given. Lab Data: Labs: Lab Results 09/01/20 09/01/20 09/01/20 Range/Units 21:51 23:40 23:40 WBC 11.0 H (4.0-10.0) 10^3/ uL RBC 4.97 (4.1-5.3) 10^6/u L Hgb 14.5 (11.5-15.3) g/dL Hct 44.9 (37.0-47.0) % MCV 90.3 (81-99) fL MCH 29.2 (28.0-34.0) pg MCHC 32.3 (30.0-36.0) g/dL RDW 12.4 (12.1-15.1) % Plt Count 162 (130-400) 10^3/c mm MPV 12.6 H (7.4-10.4) fL Neut % (Auto) 87.7 % Lymph % (Auto) 7.1 % [place] % (Auto) 4.4 % Eos % (Auto) 0.1 % Baso % (Auto) 0.3 % Neut # (Auto) 9.69 H (1.8-7.7) 10^3/u L Lymph # (Auto) 0.8 (0.8-4.8) 10^3/u L [place] # (Auto) 0.5 (0.2-0.9) 10^3/u L Eos # (Auto) 0.0 (0.0-0.8) 10^3/u L Baso # (Auto) 0.0 (0.0-0.1) 10^3/u L Nucleated RBC % (a uto) 0 % Nucleated RBCs # 0.0 /100WBC Sodium 136 (136-145) mmol/L Potassium 3.4 L (3.5-5.1) mmol/L Chloride 102 (98-107) mmol/L Carbon Dioxide 21 L (22-29) mmol/L Anion Gap 16.4 (5-19) BUN 7 (6-20) mg/dL Creatinine 0.6 (0.5-0.9) mg/dL GFR Calculation 125.0 (90-130) mL/min Glucose 121 H (65-115) mg/dL Calculated Osmolal ity 281 L (285-295) mOsm/k g Lactic Acid (0.5-2.2) mmol/L Calcium 9.8 (8.5-10.5) mg/dL Total Bilirubin 0.5 (0.15-1.2) mg/dL AST 15 (0-32) U/L ALT 10 (0-33) U/L Alkaline Phosphata se 64 (35-105) IU/L Total Protein 7.3 (6.6-8.7) g/dL Albumin 4.3 (3.5-5.2) g/dL Globulin 3.0 (1.3-4.6) g/dL Lipase 21 (13-60) U/L HCG, Qual (Negative) Urine Color Yellow (Yellow) Urine Appearance Sl hazy (CLEAR) Urine pH 8 H (5-7) Ur Specific Gravit y 1.005 (1.005-1.030) Urine Protein Neg (Negative) Urine Glucose (UA) Norm (Normal) Urine Ketones Negative (Negative) Urine Blood Neg (Negative) Urine Nitrate Negative (Negative) Urine Bilirubin Neg (Negative) Prot Sulfosalicyli c Acd Negative (Negative) Urine Urobilinogen Norm (Negative) mg/dL Ur Leukocyte Norma ase Negative (Negative) Urine RBC 5-10 H (0-2) /hpf Urine WBC 0-4 H (0-5) /hpf Ur Squamous Epith Cells 0-4 H (0-5) /hpf Amorphous Sediment Not Reportable Urine Bacteria Trace (NONE) /hpf Influenza Type A A g (Negative) Influenza Type B A g (Negative) SARS-CoV-2 Ag (Rap id) 09/01/20 09/01/20 09/01/20 Range/Units 23:40 23:40 23:55 WBC (4.0-10.0) 10^3/ uL RBC (4.1-5.3) 10^6/u L Hgb (11.5-15.3) g/dL Hct (37.0-47.0) % MCV (81-99) fL MCH (28.0-34.0) pg MCHC (30.0-36.0) g/dL RDW (12.1-15.1) % Plt Count (130-400) 10^3/c mm MPV (7.4-10.4) fL Neut % (Auto) % Lymph % (Auto) % [place] % (Auto) % Eos % (Auto) % Baso % (Auto) % Neut # (Auto) (1.8-7.7) 10^3/u L Lymph # (Auto) (0.8-4.8) 10^3/u L [place] # (Auto) (0.2-0.9) 10^3/u L Eos # (Auto) (0.0-0.8) 10^3/u L Baso # (Auto) (0.0-0.1) 10^3/u L Nucleated RBC % (a uto) % Nucleated RBCs # /100WBC Sodium (136-145) mmol/L Potassium (3.5-5.1) mmol/L Chloride (98-107) mmol/L Carbon Dioxide (22-29) mmol/L Anion Gap (5-19) BUN (6-20) mg/dL Creatinine (0.5-0.9) mg/dL GFR Calculation (90-130) mL/min Glucose (65-115) mg/dL Calculated Osmolal ity (285-295) mOsm/k g Lactic Acid 2.4 H (0.5-2.2) mmol/L Calcium (8.5-10.5) mg/dL Total Bilirubin (0.15-1.2) mg/dL AST (0-32) U/L ALT (0-33) U/L Alkaline Phosphata se (35-105) IU/L Total Protein (6.6-8.7) g/dL Albumin (3.5-5.2) g/dL Globulin (1.3-4.6) g/dL Lipase (13-60) U/L HCG, Qual Negative (Negative) Urine Color (Yellow) Urine Appearance (CLEAR) Urine pH (5-7) Ur Specific Gravit y (1.005-1.030) Urine Protein (Negative) Urine Glucose (UA) (Normal) Urine Ketones (Negative) Urine Blood (Negative) Urine Nitrate (Negative) Urine Bilirubin (Negative) Prot Sulfosalicyli c Acd (Negative) Urine Urobilinogen (Negative) mg/dL Ur Leukocyte Norma ase (Negative) Urine RBC (0-2) /hpf Urine WBC (0-5) /hpf Ur Squamous Epith Cells (0-5) /hpf Amorphous Sediment Urine Bacteria (NONE) /hpf Influenza Type A A g Negative (Negative) Influenza Type B A g Negative (Negative) SARS-CoV-2 Ag (Rap id) 09/01/20 09/02/20 Range/Units 23:55 00:53 WBC (4.0-10.0) 10^3/ uL RBC (4.1-5.3) 10^6/u L Hgb (11.5-15.3) g/dL Hct (37.0-47.0) % MCV (81-99) fL MCH (28.0-34.0) pg MCHC (30.0-36.0) g/dL RDW (12.1-15.1) % Plt Count (130-400) 10^3/c mm MPV (7.4-10.4) fL Neut % (Auto) % Lymph % (Auto) % [place] % (Auto) % Eos % (Auto) % Baso % (Auto) % Neut # (Auto) (1.8-7.7) 10^3/u L Lymph # (Auto) (0.8-4.8) 10^3/u L [place] # (Auto) (0.2-0.9) 10^3/u L Eos # (Auto) (0.0-0.8) 10^3/u L Baso # (Auto) (0.0-0.1) 10^3/u L Nucleated RBC % (a uto) % Nucleated RBCs # /100WBC Sodium (136-145) mmol/L Potassium (3.5-5.1) mmol/L Chloride (98-107) mmol/L Carbon Dioxide (22-29) mmol/L Anion Gap (5-19) BUN (6-20) mg/dL Creatinine (0.5-0.9) mg/dL GFR Calculation (90-130) mL/min Glucose (65-115) mg/dL Calculated Osmolal ity (285-295) mOsm/k g Lactic Acid (0.5-2.2) mmol/L Calcium (8.5-10.5) mg/dL Total Bilirubin (0.15-1.2) mg/dL AST (0-32) U/L ALT (0-33) U/L Alkaline Phosphata se (35-105) IU/L Total Protein (6.6-8.7) g/dL Albumin (3.5-5.2) g/dL Globulin (1.3-4.6) g/dL Lipase (13-60) U/L HCG, Qual (Negative) Urine Color (Yellow) Urine Appearance (CLEAR) Urine pH (5-7) Ur Specific Gravit y (1.005-1.030) Urine Protein (Negative) Urine Glucose (UA) (Normal) Urine Ketones (Negative) Urine Blood (Negative) Urine Nitrate (Negative) Urine Bilirubin (Negative) Prot Sulfosalicyli c Acd (Negative) Urine Urobilinogen (Negative) mg/dL Ur Leukocyte Norma ase (Negative) Urine RBC (0-2) /hpf Urine WBC (0-5) /hpf Ur Squamous Epith Cells (0-5) /hpf Amorphous Sediment Urine Bacteria (NONE) /hpf Influenza Type A A g (Negative) Influenza Type B A g (Negative) SARS-CoV-2 Ag (Rap id) Cancelled Negative Discharge Plan Discharge Patient Disposition: Home Clinical Impression: Dehydration Nausea and vomiting Qualifiers: Vomiting type: unspecified Vomiting Intractability: non-intractable Qualified Code(s): R11.2 - Nausea with vomiting, unspecified Condition: Stable Prescriptions: New Reglan 10 mg tablet 10 mg PO Q6H 7 Days Qty: 15 RF: 0 No Action Amanda 14 mcg/24 hrs (3 yrs) 13.5 mg intrauterine device INTRAUTERI RF: 0 Nurtec ODT 75 mg tablet,disintegrating PO RF: 0 venlafaxine [Effexor XR] 37.5 mg capsule,extended release 24hr 37.5 mg PO DAILY Qty: 30 RF: 0 buspirone 5 mg tablet 5 mg PO TID PRN (Reason: anxiety) Qty: 90 RF: 0 albuterol sulfate [ProAir HFA] 90 mcg/actuation HFA aerosol inhaler 2 puff INHALATION Q6H PRN (Reason: shortness of breath or wheezing) Qty: 8.5 RF: 0 Aimovig Autoinjector 70 mg/mL auto-injector 70 mg SUBCUT Q30D RF: 0 Discharge Orders: Discharge ED (Routine); Ordered 09/02/20 Ordered By: Kim Keane Referrals: Yue Wahl DO [Primary Care Provider] - Activity Restrictions/Additional Instructions: You may return to the emergency department for worsening nausea/vomiting, severe abdominal pain, continued fevers, generally feeling worse, passing out episodes, or any other concerns you may have. Coding Level of Care Code ED Autom[employer] T[employer] Technician for Chg Fwd Exam Comprehensive
[2020-09-01 23:46] VITALS: RESP 16; TEMP 39.4; O2SAT 100
[2020-09-01 23:51] LABS: Basophils % 0.3 %; Eosinophils % 0.1 %; Hematocrit 44.9 % (37.0-47.0); Hemoglobin 14.5 g/dL (11.5-15.3); Lymphocytes # 0.8 10^3/uL (0.8-4.8); Lymphocytes % 7.1 %; Mean Corpuscular HGB Conc 32.3 g/dL (30.0-36.0); Mean Corpuscular Hemoglobin 29.2 pg (28.0-34.0); Mean Corpuscular Volume 90.3 fL (81-99); Mean Platelet Volume 12.6 fL (7.4-10.4); Monocytes # 0.5 10^3/uL (0.2-0.9); Monocytes % 4.4 %; Neutrophils # 9.69 10^3/uL (1.8-7.7); Neutrophils % 87.7 %; Nucleated Red Blood Cells % 0 %; Platelet Count 162 10^3/cmm (130-400); Red Blood Count 4.97 10^6/uL (4.1-5.3); Red Cell Distribution Width 12.4 % (12.1-15.1)
[2020-09-01] MEDS: ondansetron 2 mg/ML SDV 2 mL 4 MG IVP (23:57)
[2020-09-01] MEDS: sodium chloride 0.9% 1,000 ML 999 ML IV (23:57)
[2020-09-02] LABS: HCG, Serum Qual Negative (Negative)
[2020-09-02 00:10] LABS: Alanine Aminotransferase 10 U/L (0-33); Albumin Level 4.3 g/dL (3.5-5.2); Alkaline Phosphatase 64 IU/L (35-105); Aspartate Amino Transferase 15 U/L (0-32); Blood Urea Nitrogen 7 mg/dL (6-20); Calcium 9.8 mg/dL (8.5-10.5); Carbon Dioxide 21 mmol/L (22-29); Chloride 102 mmol/L (98-107); Glucose 121 mg/dL (65-115); Lipase 21 U/L (13-60); Osmolality Calculated 281 mOsm/kg (285-295); Sodium 136 mmol/L (136-145); Total Bilirubin 0.5 mg/dL (0.15-1.2); Total Protein 7.3 g/dL (6.6-8.7)
[2020-09-02 00:19] LABS: Anion Gap 16.4 (5-19); Potassium 3.4 mmol/L (3.5-5.1)
[2020-09-02 00:28] LABS: Lactic Sepsis W/Reflex 2.4 mmol/L (0.5-2.2)
[2020-09-02] MEDS: metoclopramide 5 mg/mL SDV 2 mL 10 MG IVP (00:41)
[2020-09-02 00:47] LABS: Influenza A by IFA Negative (Negative); Influenza B by IFA Negative (Negative)
[2020-09-02 00:52] LABS: Urine Color Yellow (Yellow)
[2020-09-02 00:53] LABS: Add Urine Microscopic? YES; Bilirubin Urine Neg (Negative); Blood Urine Neg (Negative); Glucose Urine UA Norm (Normal); Ketones Urine Negative (Negative); Leukocyte Esterase Urine Negative (Negative); Nitrate Urine Negative (Negative); Protein Urine Neg (Negative); Specific Gravity, Urine 1.005 (1.005-1.030); Sulfosalicylic Acid Urine Negative (Negative); Urine Appearance SL Hazy (CLEAR); Urobilinogen Urine Norm (Negative); pH Urine 8 (5-7)
[2020-09-02 00:54] LABS: Bacteria Urine TRACE /hpf; WBC Urine 0-4 /hpf (0-5)
[2020-09-02 00:55] LABS: Add Urine Culture? No; Squamous Epithelial Cell Urine 0-4 /hpf (0-5)
[2020-09-02 01:00] VITALS: BP 121/86; PULSE 87; RESP 18; O2SAT 99
[2020-09-02 01:41] LABS: SARS Covid-2 Antigen Negative (Negative)
[2020-09-02 02:03] LABS: Reflex Lactate Order REFLEX LACTIC ORDERD
[2020-09-02 02:10] VITALS: BP 116/87; PULSE 87; RESP 16; O2SAT 99
== END 2020-09-02 02:11 | disposition home or self-care (01) ==
PROVIDERS: Emergency Provider Physician Assistant; PCP Family Medicine
DX: R11.2 Nausea with vomiting, unspecified (principal); E86.0 Dehydration
CPT/HCPCS: 12345; 80053; 81001; 81003; 83605; 83690; 84703; 85025; 87426; 87804; 96361; 96374; 96375; 99283; J2405; J2765; J7030

== ENCOUNTER → 2020-09-02 11:13 | Outpatient (BNVA) | payer OTHER, SELFPAY | PROVIDERS: PCP Family Medicine; Visit Provider Family Medicine | DX: R10.84 Generalized abdominal pain (principal) | CPT/HCPCS: 87086 ==

== ENCOUNTER → 2020-12-30 14:14 | Outpatient (BNVA) | payer OTHER, SELFPAY | PROVIDERS: PCP Family Medicine; Visit Provider Obstetrics & Gynecology | DX: Z30.431 Encounter for routine checking of intrauterine contraceptive device (principal) | CPT/HCPCS: 81025 ==

== ENCOUNTER 2021-04-30 14:35 | Emergency (ER) | payer OTHER, SELFPAY ==
[2021-04-30 14:59] VITALS: BP 113/75; PULSE 95; RESP 18; TEMP 37.3; O2SAT 99; BMI 25.6
[2021-04-30 15:16] LABS: Glucose Point of Care 77 mg/dL (70-110)
[2021-04-30 15:26] VITALS: BP 117/76; PULSE 88; RESP 14; TEMP 36.4; O2SAT 98
[2021-04-30 15:44] VITALS: BP 100/56; PULSE 72; RESP 14; TEMP 36.8; O2SAT 100
[2021-04-30] MEDS: ondansetron 2 mg/ML SDV 2 mL 4 MG IVP (15:51)
--- NOTE | 2021-04-30 15:51 | W.ED.GENADLT ---
HPI - General Adult General: Chief complaint: Nausea/Vomiting/Diarrhea Stated complaint: COUGH, CONGESTION, DIZZINESS, N/V/D SHAKY Time Seen by Provider: 04/30/21 15:11 Source: patient Mode of arrival: ambulatory Limitations: no limitations History of Present Illness: HPI narrative: Patient is a 20-year-old female presents to ED today with a complaint of feeling tremulous, nausea, and vomiting. Patient states she has had similar episodes off and on for four years and states she has been told by her primary care provider that they feel she is most likely getting hypoglycemic. Patient tells me during these episodes she can usually eat/drink something and in 30-45 minutes her symptoms subside. Patient states she does not have a glucometer at home as her insurance will not approve her for one as she does not have a diagnosis of diabetes. She does report diabetes runs in her family. Patient denies any previous history of seizures, loss of consciousness, presyncopal episodes, confusion or palpitations. Relieving factors: eating Associated symptoms: Reports nausea and vomiting; Deny chest pain, dyspnea, headache(s), malaise, rash, palpitations or syncope Review of Systems Const: Denies: fever(s), chills, body aches, fatigue or malaise Eyes: Denies: change in vision, blurry vision or photophobia ENMT: Denies: throat pain or odynophagia Card: Denies: chest pain, palpitations, irregular heart rhythm, edema, lightheadedness, syncope or pre-syncope Resp: Denies: dyspnea GI: Reports: nausea, vomiting and diarrhea (chronically since cholecystectomy); Denies: abdominal pain : Denies: flank pain, dysuria or hematuria Musc: Denies: neck pain, back pain, extremity pain or joint pain Skin/Breast: Denies: rash Neuro: Reports: dizziness; Denies: headache(s), numbness in extremities, weakness in extremities, sensory changes or difficulty walking PFS ED PFSH: Medical History Anxiety Asthma Depression History of 2019 novel coronavirus disease (COVID-19) Migraine without aura No pertinent past medical history neghx: htn,dm,thyroid,dvt/pe PCP: Dr. Wahl Surgical History History of laparoscopic cholecystectomy (~07/2017) History of tonsillectomy Status post myringotomy with insertion of tube Family History Grandmother Cancer Stroke Maternal Grandfather Diabetes Maternal Cancer Hypertension Maternal Mother Psychiatric illness Depression and anxiety Diabetes Hypertension Sister Psychiatric illness Depression and anxiety Thyroid disease Denies family history of Colon cancer Ovarian cancer Hypercholesteremia Breast cancer Uterine cancer Social History Smoking and tobacco status: never smoked Other details last substance use: Denies drug use Female Reproductive History: Date of last menstrual period: 07/31/19 Physical Exam Const: COMMON NORMALS: no acute distress, average body habitus, patient oriented x3, no limitations, healthy appearing, alert and well nourished GENERAL APPEARANCE: cooperative ORIENTATION/CONSCIOUSNESS: Yes awake, Yes oriented to person, Yes oriented to place and Yes oriented to time OTHER: tremulous HENMT: COMMON NORMALS: normocephalic and atraumatic HEAD & SCALP: normocephalic and atraumatic Resp: COMMON NORMALS: normal respiratory effort and clear to auscultation bilaterally AUSCULTATION: clear to auscultation bilaterally Cardio: COMMON NORMALS: regular rate and regular rhythm RATE: regular rate RHYTHM: regular rhythm GI: COMMON NORMALS: Normal to inspection, nondistended, normoactive bowel sounds present, Soft to palpation, non-tender, No hepatosplenomegaly present and no masses PALPATION: Yes Soft to palpation and Yes No hepatosplenomegaly present Neuro: NAA LAURA COMA SCALE: document GCS findings Ana Laura coma scale eye opening: Spontaneous Ana [place] coma scale verbal response: Orientated [place] coma scale motor response: Obey commands Ana Laura coma scale total score: 15 COMMON NORMALS: patient oriented x3, CN's II-XII intact bilaterally, moves all extremities, no focal motor deficits, no sensory deficits noted and gait normal SENSORIUM/ORIENTATION: Yes alert, Yes oriented to person, Yes oriented to place and Yes oriented to time Skin: COMMON NORMALS: no rashes or lesions noted GENERAL SKIN EXAM: no rashes or lesions noted Course ED course: Patient has ate a small amount of food and juice. States she doesn't feel much improved and still having nausea. Will give some fluids and reglan. Vital Signs: Vital signs: Vital Signs Temperature 97.9 F 04/30/21 16:50 Pulse Rate 92 04/30/21 16:50 Respiratory Rate 14 04/30/21 16:50 Blood Pressure 108/84 04/30/21 16:50 Pulse Oximetry 100 04/30/21 16:50 MDM - General Adult MDM Narrative: Medical decision making narrative: Patient POC glucose upon arrival (symptomatic at the time) was 77. Her hemoglobin A1c is 5.0%. Certainly she does not meet criteria for diabetes at this time. DDx of a normal glucose level with symptoms could be but not limited to postprandial syndrome, cardiac disease (although she has no complaints of palpitations, chest pain, presyncope, etc), medications, psychiatric disease, and metabolic disorders (hyperthyroidism, pheochromocytoma, etc). Recommend she follow up with PCP for further evaluation. Remainder of labs/UA are unremarkable. She has an appointment with PCP on Wednesday for further evaluation. Lab Data: Labs: Lab Results 04/30/21 04/30/21 04/30/21 Range/Units 15:12 15:20 15:40 WBC (4.0-10.0) 10^3/ uL RBC (4.1-5.3) 10^6/u L Hgb (11.5-15.3) g/dL Hct (37.0-47.0) % MCV (81-99) fl MCH (28.0-34.0) pg MCHC (30.0-36.0) g/dL RDW (12.1-15.1) % Plt Count (130-400) 10^3/c mm MPV (7.4-10.4) fL Neut % (Auto) % Lymph % (Auto) % [place] % (Auto) % Eos % (Auto) % Baso % (Auto) % Neut # (Auto) (1.8-7.7) 10^3/u L Lymph # (Auto) (0.8-4.8) 10^3/u L [place] # (Auto) (0.2-0.9) 10^3/u L Eos # (Auto) (0.0-0.8) 10^3/u L Baso # (Auto) (0.0-0.1) 10^3/u L Nucleated RBC % (a uto) % Nucleated RBCs # /100WBC Sodium (136-145) mmol/L Potassium (3.5-5.1) mmol/L Chloride (98-107) mmol/L Carbon Dioxide (22-29) mmol/L Anion Gap (5-19) BUN (6-20) mg/dL Creatinine (0.5-0.9) mg/dL GFR Calculation (90-130) mL/min Glucose (65-115) mg/dL POC Glucose 77 (70-110) mg/dL Estimat Average Gl ucose 97 Hemoglobin A1c 5.0 (4.0-6.0) % Calculated Osmolal ity (285-295) mOsm/k g Calcium (8.5-10.5) mg/dL Total Bilirubin (0.15-1.2) mg/dL AST (0-32) U/L ALT (0-33) U/L Alkaline Phosphata se (35-105) IU/L Total Protein (6.6-8.7) g/dL Albumin (3.5-5.2) g/dL Globulin (1.3-4.6) g/dL HCG, Qual (Negative) Urine Color Straw (Yellow) Urine Appearance Clear (CLEAR) Urine pH 7 (5-7) Ur Specific Gravit y 1.005 (1.005-1.030) Urine Protein Neg (Negative) Urine Glucose (UA) Norm (Normal) Urine Ketones Negative (Negative) Urine Blood 2+ H (Negative) Urine Nitrate Negative (Negative) Urine Bilirubin Neg (Negative) Urine Urobilinogen Norm (Negative) mg/dL Ur Leukocyte Norma ase Negative (Negative) Urine RBC 5-10 H (0-2) /hpf Urine WBC 0-4 H (0-5) /hpf Ur Squamous Epith Cells 5-10 H (0-5) /hpf Ur Transition Epit h Cell 0-4 /hpf Amorphous Sediment Not Reportable Urine Bacteria Trace (NONE) /hpf 04/30/21 04/30/21 04/30/21 Range/Units 15:40 15:40 15:40 WBC 8.4 (4.0-10.0) 10^3/ uL RBC 5.16 (4.1-5.3) 10^6/u L Hgb 14.8 (11.5-15.3) g/dL Hct 44.5 (37.0-47.0) % MCV 86.2 (81-99) fl MCH 28.7 (28.0-34.0) pg MCHC 33.3 (30.0-36.0) g/dL RDW 12.4 (12.1-15.1) % Plt Count 213 (130-400) 10^3/c mm MPV 11.5 H (7.4-10.4) fL Neut % (Auto) 69.5 % Lymph % (Auto) 24.2 % [place] % (Auto) 5.0 % Eos % (Auto) 0.7 % Baso % (Auto) 0.4 % Neut # (Auto) 5.83 (1.8-7.7) 10^3/u L Lymph # (Auto) 2.0 (0.8-4.8) 10^3/u L [place] # (Auto) 0.4 (0.2-0.9) 10^3/u L Eos # (Auto) 0.1 (0.0-0.8) 10^3/u L Baso # (Auto) 0.0 (0.0-0.1) 10^3/u L Nucleated RBC % (a uto) 0 % Nucleated RBCs # 0.0 /100WBC Sodium 141 (136-145) mmol/L Potassium 4.0 (3.5-5.1) mmol/L Chloride 104 (98-107) mmol/L Carbon Dioxide 25 (22-29) mmol/L Anion Gap 16.0 (5-19) BUN 5 L (6-20) mg/dL Creatinine 0.6 (0.5-0.9) mg/dL GFR Calculation 125.0 (90-130) mL/min Glucose 73 (65-115) mg/dL POC Glucose (70-110) mg/dL Estimat Average Gl ucose Hemoglobin A1c (4.0-6.0) % Calculated Osmolal ity 288 (285-295) mOsm/k g Calcium 9.5 (8.5-10.5) mg/dL Total Bilirubin 0.2 (0.15-1.2) mg/dL AST 13 (0-32) U/L ALT 8 (0-33) U/L Alkaline Phosphata se 79 (35-105) IU/L Total Protein 7.6 (6.6-8.7) g/dL Albumin 4.9 (3.5-5.2) g/dL Globulin 2.7 (1.3-4.6) g/dL HCG, Qual Negative (Negative) Urine Color (Yellow) Urine Appearance (CLEAR) Urine pH (5-7) Ur Specific Gravit y (1.005-1.030) Urine Protein (Negative) Urine Glucose (UA) (Normal) Urine Ketones (Negative) Urine Blood (Negative) Urine Nitrate (Negative) Urine Bilirubin (Negative) Urine Urobilinogen (Negative) mg/dL Ur Leukocyte Norma ase (Negative) Urine RBC (0-2) /hpf Urine WBC (0-5) /hpf Ur Squamous Epith Cells (0-5) /hpf Ur Transition Epit h Cell /hpf Amorphous Sediment Urine Bacteria (NONE) /hpf Discharge Plan Discharge Patient Disposition: Home Clinical Impression: Tremulousness Nausea and vomiting Qualifiers: Vomiting type: unspecified Vomiting Intractability: non-intractable Qualified Code(s): R11.2 - Nausea with vomiting, unspecified Condition: Stable Prescriptions: No Action Amanda 14 mcg/24 hrs (3 yrs) 13.5 mg intrauterine device INTRAUTERI RF: 0 albuterol sulfate [ProAir HFA] 90 mcg/actuation HFA aerosol inhaler 2 puff INHALATION Q6H PRN (Reason: shortness of breath or wheezing) Qty: 8.5 RF: 0 Discharge Orders: Discharge ED (Routine); Ordered 04/30/21 Ordered By: Kim Keane Referrals: Yue Wahl DO [Primary Care Provider] - Activity Restrictions/Additional Instructions: Please follow-up with primary care provider on Wednesday at your scheduled appointment. You may return to the emergency department in the meantime for repetitive episodes of nausea vomiting, passing out episodes, palpitations, chest pain, shortness of breath, difficulty breathing, severe sweatiness, racing heart rate, or any other concerns you may have. I hope you begin to feel better soon. Coding Level of Care Code ED [employer] Laborer for Hanny Fwd Exam Detailed
[2021-04-30 15:52] LABS: Basophils % 0.4 %; Eosinophils # 0.1 10^3/uL (0.0-0.8); Eosinophils % 0.7 %; Hematocrit 44.5 % (37.0-47.0); Hemoglobin 14.8 g/dL (11.5-15.3); Lymphocytes % 24.2 %; Mean Corpuscular HGB Conc 33.3 g/dL (30.0-36.0); Mean Corpuscular Hemoglobin 28.7 pg (28.0-34.0); Mean Corpuscular Volume 86.2 fl (81-99); Mean Platelet Volume 11.5 fL (7.4-10.4); Monocytes # 0.4 10^3/uL (0.2-0.9); Neutrophils # 5.83 10^3/uL (1.8-7.7); Neutrophils % 69.5 %; Nucleated Red Blood Cells % 0 %; Platelet Count 213 10^3/cmm (130-400); Red Blood Count 5.16 10^6/uL (4.1-5.3); Red Cell Distribution Width 12.4 % (12.1-15.1); White Blood Count 8.4 10^3/uL (4.0-10.0)
[2021-04-30 16:01] LABS: Blood Urine 2+ (Negative); Glucose Urine UA Norm (Normal); Ketones Urine Negative (Negative); Nitrate Urine Negative (Negative); Protein Urine Neg (Negative); Specific Gravity, Urine 1.005 (1.005-1.030); Urine Appearance Clear (CLEAR); Urine Color Straw (Yellow); pH Urine 7 (5-7)
[2021-04-30 16:02] LABS: Add Urine Microscopic? YES; Bilirubin Urine Neg (Negative); Leukocyte Esterase Urine Negative (Negative); Urobilinogen Urine Norm (Negative)
[2021-04-30 16:12] LABS: Alanine Aminotransferase 8 U/L (0-33); Albumin Level 4.9 g/dL (3.5-5.2); Alkaline Phosphatase 79 IU/L (35-105); Aspartate Amino Transferase 13 U/L (0-32); Blood Urea Nitrogen 5 mg/dL (6-20); Calcium 9.5 mg/dL (8.5-10.5); Carbon Dioxide 25 mmol/L (22-29); Chloride 104 mmol/L (98-107); Globulin 2.7 g/dL (1.3-4.6); Glucose 73 mg/dL (65-115); Osmolality Calculated 288 mOsm/kg (285-295); Sodium 141 mmol/L (136-145); Total Bilirubin 0.2 mg/dL (0.15-1.2); Total Protein 7.6 g/dL (6.6-8.7)
[2021-04-30 16:13] LABS: Add Urine Culture? No; Bacteria Urine TRACE /hpf; Transitional Epi Cells Urine 0-4 /hpf; WBC Urine 0-4 /hpf (0-5)
[2021-04-30 16:14] LABS: HCG, Serum Qual Negative (Negative)
[2021-04-30 16:18] LABS: Estmated Average Glucose 97
[2021-04-30 16:50] VITALS: BP 108/84; PULSE 92; RESP 14; TEMP 36.6; O2SAT 100
[2021-04-30] MEDS: sodium chloride 0.9% 1,000 ML 999 ML IV (16:51)
[2021-04-30] MEDS: metoclopramide 5 mg/mL SDV 2 mL 10 MG IVP (16:51)
[2021-04-30 17:31] VITALS: BP 102/74; PULSE 90; RESP 14; TEMP 36.6; O2SAT 99
== END 2021-04-30 17:33 | disposition home or self-care (01) ==
PROVIDERS: Emergency Provider Physician Assistant; PCP Family Medicine
DX: R11.2 Nausea with vomiting, unspecified (principal); R25.1 Tremor, unspecified
CPT/HCPCS: 36416; 80053; 81001; 82962; 83036; 84703; 85025; 96361; 96374; 96375; 99284; J2405; J2765; J7030

== ENCOUNTER 2021-05-09 21:19 | Emergency (ER) | payer OTHER, SELFPAY ==
[2021-05-09 21:24] VITALS: BP 112/80; PULSE 103; RESP 19; TEMP 37.9; O2SAT 98; BMI 29.8
[2021-05-09 21:38] VITALS: BP 112/80; PULSE 109; RESP 15; O2SAT 97
--- NOTE | 2021-05-09 21:39 | ED_ITS ---
HPI - Dental/Oral General: Chief complaint: Dental/Oral Stated complaint: Fever\N\V [place] Teeth pain Time Seen by Provider: 05/09/21 21:24 History of Present Illness: HPI Narrative: Patient complains of impacted wisdom tooth left side. Is been bothering for couple 3 days. Developed fever today. Says she has some swelling pain left lower jaw area said that her wisdom teeth are sideways in a higher need of coming out. She denies any other symptoms. MD Complaint: tooth pain Teeth map: 1. Onset (ago): day(s) Duration: constant Severity: moderate Severity scale (1-10): 4 Relieving factors: nothing Exacerbating factors: nothing Context: poor dental care Associated symptoms: Denies fever(s) Review of Systems Const: Denies: fever(s), chills or body aches Eyes: Denies: change in vision or blurry vision ENMT: Reports: dental pain; Denies: throat pain or nasal congestion Card: Denies: chest pain or dyspnea on exertion Resp: Denies: dyspnea, productive cough or non-productive cough GI: Reports: nausea and vomiting; Denies: abdominal pain Musc: Denies: extremity pain Skin/Breast: Denies: rash Neuro: Denies: headache(s) Psych: Denies: anxiety or depression Leonel/Lymph: Denies: easy bruising PFSH ED PFSH: Medical History (Updated 05/09/21 @ 14:24 by Yue Wahl DO) Anxiety Asthma Depression History of 2019 novel coronavirus disease (COVID-19) Migraine without aura No pertinent past medical history neghx: htn,dm,thyroid,dvt/pe PCP: Dr. Wahl Surgical History History of laparoscopic cholecystectomy (~07/2017) History of tonsillectomy Status post myringotomy with insertion of tube Family History Grandmother Cancer Stroke Maternal Grandfather Diabetes Maternal Cancer Hypertension Maternal Mother Psychiatric illness Depression and anxiety Diabetes Hypertension Sister Psychiatric illness Depression and anxiety Thyroid disease Denies family history of Colon cancer Ovarian cancer Hypercholesteremia Breast cancer Uterine cancer Social History Smoking and tobacco status: never smoked Other details last substance use: Denies drug use Female Reproductive History: Date of last menstrual period: 07/31/19 Physical Exam Const: COMMON NORMALS: no acute distress, average body habitus and patient oriented x3 HENMT: COMMON NORMALS: normocephalic HEAD & SCALP: normal to inspection and normocephalic FACE & SINUS: normal facial exam TEETH & GINGIVA IMAGES: 1. Mild swelling tenderness to this area. Eye: COMMON NORMALS: conjunctivae normal GENERAL EYE: appearance normal, both eyes and all related structures CONJUNCTIVA: Yes conjunctivae normal Neck/C-Spine: COMMON NORMALS: no JVD Lymph: LYMPHATIC: no lymphadenopathy noted Chest: COMMONS NORMALS: normal inspection of the chest Resp: COMMON NORMALS: normal respiratory effort and clear to auscultation bilaterally AUSCULTATION: clear to auscultation bilaterally Cardio: COMMON NORMALS: no JVD, regular rate and regular rhythm RATE: regular rate RHYTHM: regular rhythm GI: COMMON NORMALS: Normal to inspection, nondistended, normoactive bowel sounds present Extremity: COMMON NORMALS: normal to inspection and full ROM Neuro: COMMON NORMALS: patient oriented x3 Course Vital Signs: Vital signs: Vital Signs Temperature 100.2 F H 05/09/21 21:24 Pulse Rate 109 H 05/09/21 21:38 Respiratory Rate 15 05/09/21 21:38 Blood Pressure 112/80 05/09/21 21:38 Pulse Oximetry 97 05/09/21 21:38 Discharge Plan Discharge Prescriptions: No Action Amanda 14 mcg/24 hrs (3 yrs) 13.5 mg intrauterine device INTRAUTERI RF: 0 albuterol sulfate [ProAir HFA] 90 mcg/actuation HFA aerosol inhaler 2 puff INHALATION Q6H PRN (Reason: shortness of breath or wheezing) Qty: 8.5 RF: 1 Reglan 10 mg tablet 10 mg PO Q6H PRN (Reason: nausea and vomiting) Qty: 15 RF: 0 Coding Level of Care Code ED Intranet Support for Hanny Curry
[2021-05-09] MEDS: ketorolac 60 mg/2 mL INJ IM (21:51)
[2021-05-09] MEDS: ondansetron 2 mg/ML SDV 2 mL 4 MG IM (21:51)
[2021-05-09] MEDS: HYDROcodone-acetaminophen 5-325 mg Tablet 1 TAB PO (22:34)
[2021-05-09] MEDS: clindamycin 150 mg Capsule 300 MG PO (22:34)
[2021-05-09 22:37] VITALS: BP 112/80; PULSE 94; RESP 14; O2SAT 97
== END 2021-05-09 22:37 | disposition home or self-care (01) ==
LOC: ER 22:07
PROVIDERS: Emergency Provider Nurse Practitioner Family; PCP Family Medicine
DX: K08.89 Other specified disorders of teeth and supporting structures (principal)
CPT/HCPCS: 96372; 99283; J1885; J2405

== ENCOUNTER 2021-05-14 07:24 | Emergency (ER) | payer OTHER, SELFPAY ==
[2021-05-14 07:36] VITALS: BP 102/64; PULSE 95; RESP 15; TEMP 39; O2SAT 97; BMI 27.4
--- NOTE | 2021-05-14 07:43 | W.ED.NAVMDI ---
Documented by User: MIGUEL Montanez 05/14/21 10:10 HPI - Nausea/Vomiting/Diarrhea General: Chief complaint: Nausea/Vomiting/Diarrhea Stated complaint: Vomiting, Fever Time Seen by Provider: 05/14/21 07:25 Source: patient Mode of arrival: ambulatory Limitations: no limitations History of Present Illness: HPI Narrative: Patient is a 20-year-old female presents to ED today with a complaint of nausea, vomiting, diarrhea, abdominal pain, and fevers. Patient tells me she began experiencing diarrhea yesterday evening. She has had a total of 3-4 nonbloody diarrhea stools since onset. She states she woke up this morning and felt incredibly nauseous. She has thrown up a total of 7-8 times. She states a few episodes of her emesis contained a small amount of bright red blood. She is complaining of abdominal pain. Patient was seen in our ER 4 to 5 days ago for complaints of dental pain. She was prescribed clindamycin and tramadol. Patient has been taking the clindamycin without adverse reaction since it was prescribed. states patient felt very warm this morning and thought she was febrile. No poor food exposures. No sick contacts. MD elicited complaint: nausea, vomiting, diarrhea and abdominal pain Description of diarrhea: watery Associated nausea: Yes Associated abdominal pain: Yes Location of pain: Diffuse Pain consistency: constant Relieving factors: none Associated symtoms: Reports nausea; Denies change in vision, chest pain, dysuria, headache(s), palpitations or syncope Review of Systems Const: Reports: fever(s) and chills Eyes: Denies: change in vision, blurry vision, photophobia, floaters or seeing flashes ENMT: Reports: dental pain; Denies: throat pain, odynophagia, hoarseness, oral sores, ear or mastoid pain, ear discharge, nasal discharge, nasal congestion, post nasal drip or sinus pain Card: Denies: chest pain, palpitations, irregular heart rhythm, edema, swelling of feet/ankles, lightheadedness, syncope, pre-syncope or dyspnea on exertion Resp: Denies: dyspnea, productive cough, non-productive cough, wheezing, hemoptysis or chest congestion GI: Reports: abdominal pain, nausea, vomiting, hematemesis and diarrhea; Denies: coffee ground emesis, hematochezia, melena or white/light colored stool : Denies: flank pain, difficulty voiding, dysuria, urinary frequency, urinary urgency or urinary hesitancy Musc: Denies: neck pain, back pain, extremity pain or joint pain Skin/Breast: Denies: rash Neuro: Denies: headache(s), numbness in extremities, weakness in extremities, sensory changes, lack of coordination, difficulty walking, frequent falls, confusion or Slurred speech present [facility] ED PFSH: Medical History (Updated 05/17/21 @ 00:01 by ) Anxiety Asthma Depression History of 2019 novel coronavirus disease (COVID-19) Migraine without aura No pertinent past medical history neghx: htn,dm,thyroid,dvt/pe PCP: Dr. Wahl Surgical History History of laparoscopic cholecystectomy (~07/2017) History of tonsillectomy Status post myringotomy with insertion of tube Family History Grandmother Cancer Stroke Maternal Grandfather Diabetes Maternal Cancer Hypertension Maternal Mother Psychiatric illness Depression and anxiety Diabetes Hypertension Sister Psychiatric illness Depression and anxiety Thyroid disease Denies family history of Colon cancer Ovarian cancer Hypercholesteremia Breast cancer Uterine cancer Social History Smoking and tobacco status: never smoked Other details last substance use: Denies drug use Female Reproductive History: Date of last menstrual period: 04/25/21 Physical Exam Const: COMMON NORMALS: average body habitus, patient oriented x3, no limitations, healthy appearing, alert and well nourished GENERAL APPEARANCE: cooperative ORIENTATION/CONSCIOUSNESS: Yes awake, Yes oriented to person, Yes oriented to place and Yes oriented to time OTHER: looks like she doesn't feel well HENMT: COMMON NORMALS: normocephalic and atraumatic HEAD & SCALP: normal to inspection, normocephalic and atraumatic FACE & SINUS: normal facial exam MOUTH: other TEETH & GINGIVA: Yes other (extremely poor dentition; severely decayed L 3rd molar; no abscess) Neck/C-Spine: COMMON NORMALS: full ROM, no lymphadenopathy and no meningeal signs GENERAL: No anterior neck swelling and No submandibular swelling Resp: COMMON NORMALS: normal respiratory effort and clear to auscultation bilaterally AUSCULTATION: clear to auscultation bilaterally Cardio: COMMON NORMALS: regular rate and regular rhythm RATE: regular rate RHYTHM: regular rhythm OTHER: pt gets tachycardic after lying flat for abdominal exam and then sitting up GI: COMMON NORMALS: Normal to inspection, nondistended, normoactive bowel sounds present, Soft to palpation, No hepatosplenomegaly present and no masses INSPECTION: Yes normal to inspection AUSCULTATION: Yes normoactive bowel sounds PALPATION: Yes Soft to palpation, Yes Tenderness to palpation present (GI) (throughout abdomen but mainly to upper) and Yes No hepatosplenomegaly present : COMMON NORMALS: Yes no CVA tenderness BLADDER/KIDNEY EXAM: Yes no CVA tenderness Back/Pelvis: COMMON NORMALS: no CVA tenderness Extremity: COMMON NORMALS: normal to inspection Neuro: ANA LAURA COMA SCALE: document GCS findings Grace coma scale eye opening: Spontaneous Ana Laura coma scale verbal response: Orientated Ana Laura coma scale motor response: Obey commands Ana Laura coma scale total score: 15 COMMON NORMALS: patient oriented x3, CN's II-XII intact bilaterally, moves all extremities, no focal motor deficits and no sensory deficits noted SENSORIUM/ORIENTATION: Yes alert, Yes oriented to person, Yes oriented to place and Yes oriented to time MENINGEAL SIGNS: Yes no meningeal signs Skin: COMMON NORMALS: no rashes or lesions noted NARRATIVE SKIN EXAM: sweaty-noted to have temp of 102 GENERAL SKIN EXAM: no rashes or lesions noted TRAUMA: no lacerations or abrasions Course Reevaluation(s): Reevaluation #1: Patient feeling much better. Still having slight nausea and mild upper abdominal pain. No vomiting or diarrhea during her stay. Fever down with Tylenol. Vital Signs: Vital signs: Vital Signs Temperature 99.4 F 05/14/21 09:11 Pulse Rate 95 05/14/21 10:39 Respiratory Rate 15 05/14/21 10:39 Blood Pressure 128/71 05/14/21 10:39 Pulse Oximetry 98 05/14/21 10:39 MDM - Nausea/Vomiting/Diarrhea MDM Narrative: Medical decision making narrative: Patient is feeling much improved and clinically looks better. She has not had any episodes of vomiting or diarrhea throughout her stay. Completed oral challenge. Labs overall are unremarkable. UA is grossly contaminated but shows 3+ ketones and blood w/o evidence for infection. She has no complaints of dysuria or flank pain. She was given 2L fluids here. Stool cultures were ordered but patient was unable to give sample. Doesn't sound like c diff given the fact that she has only had 3 diarrhea stools since yesterday. Recommend she DC clindamycin as this could cause be culprit of/contributing to GI symptoms. Recommend dentist for her wisdom tooth discomfort. There is no oral abscess/swelling clinically. Other DDx include gastroenteritis, colitis, gastritis, etc. Return to ED precautions given. Lab Data: Labs: Lab Results 05/14/21 05/14/21 05/14/21 08:00 08:00 08:00 WBC 6.0 10^3/uL 10^3/ uL (4.0-10.0) RBC 4.52 10^6/uL 10^6 /uL (4.1-5.3) Hgb 13.0 g/dL g/dL (11.5-15.3) Hct 38.0 % % (37.0-47.0) MCV 84.1 fl fl (81-99) MCH 28.8 pg pg (28.0-34.0) MCHC 34.2 g/dL g/dL (30.0-36.0) RDW 12.5 % % (12.1-15.1) Plt Count 173 10^3/cmm 10^3 /cmm (130-400) MPV 11.8 fL H fL (7.4-10.4) Neut % (Auto) 84.6 % % Lymph % (Auto) 9.8 % % [place] % (Auto) 5.0 % % Eos % (Auto) 0.0 % % Baso % (Auto) 0.3 % % Neut # (Auto) 5.08 10^3/uL 10^3 /uL (1.8-7.7) Lymph # (Auto) 0.6 10^3/uL L 10^ 3/uL (0.8-4.8) [place] # (Auto) 0.3 10^3/uL 10^3/ uL (0.2-0.9) Eos # (Auto) 0.0 10^3/uL 10^3/ uL (0.0-0.8) Baso # (Auto) 0.0 10^3/uL 10^3/ uL (0.0-0.1) Nucleated RBC % (a uto) 0 % % Nucleated RBCs # 0.0 /100WBC /100W BC Sodium Cancelled Potassium Cancelled Chloride Cancelled Carbon Dioxide Cancelled Anion Gap Cancelled BUN Cancelled Creatinine Cancelled GFR Calculation Cancelled Glucose Cancelled Calculated Osmolal ity Cancelled Lactic Acid Calcium Cancelled Total Bilirubin Cancelled AST Cancelled ALT Cancelled Alkaline Phosphata se Cancelled Total Protein Cancelled Albumin Cancelled Globulin Cancelled Lipase Cancelled HCG, Qual Cancelled Urine Color Urine Appearance Urine pH Ur Specific Gravit y Urine Protein Urine Glucose (UA) Urine Ketones Urine Blood Urine Nitrate Urine Bilirubin Urine Urobilinogen Ur Leukocyte Norma ase Urine RBC Urine WBC Ur Squamous Epith Cells Amorphous Sediment Urine Bacteria Urine Mucus SARS-CoV-2 Ag (Rap id) 05/14/21 05/14/21 05/14/21 08:00 08:00 08:00 WBC RBC Hgb Hct MCV MCH MCHC RDW Plt Count MPV Neut % (Auto) Lymph % (Auto) [place] % (Auto) Eos % (Auto) Baso % (Auto) Neut # (Auto) Lymph # (Auto) [place] # (Auto) Eos # (Auto) Baso # (Auto) Nucleated RBC % (a uto) Nucleated RBCs # Sodium Potassium Chloride Carbon Dioxide Anion Gap BUN Creatinine GFR Calculation Glucose Calculated Osmolal ity Lactic Acid Cancelled Calcium Total Bilirubin AST ALT Alkaline Phosphata se Total Protein Albumin Globulin Lipase HCG, Qual Urine Color Yellow (Yellow) Urine Appearance Sl hazy (CLEAR) Urine pH 7 (5-7) Ur Specific Gravit y 1.005 (1.005-1.030) Urine Protein Neg (Negative) Urine Glucose (UA) Norm (Normal) Urine Ketones 3+ H (Negative) Urine Blood 3+ H (Negative) Urine Nitrate Negative (Negative) Urine Bilirubin Neg (Negative) Urine Urobilinogen Norm mg/dL mg/dL (Negative) Ur Leukocyte Norma ase Negative (Negative) Urine RBC 10-15 /hpf H /hpf (0-2) Urine WBC None /hpf /hpf (0-5) Ur Squamous Epith Cells 40-55 /hpf H /hpf (0-5) Amorphous Sediment Not Reportable Urine Bacteria 2+ /hpf H /hpf (NONE) Urine Mucus Trace /hpf /hpf SARS-CoV-2 Ag (Rap id) Negative (Negative) 05/14/21 05/14/21 05/14/21 08:32 08:32 08:32 WBC RBC Hgb Hct MCV MCH MCHC RDW Plt Count MPV Neut % (Auto) Lymph % (Auto) [place] % (Auto) Eos % (Auto) Baso % (Auto) Neut # (Auto) Lymph # (Auto) [place] # (Auto) Eos # (Auto) Baso # (Auto) Nucleated RBC % (a uto) Nucleated RBCs # Sodium 135 mmol/L L mmol /L (136-145) Potassium 3.7 mmol/L mmol/L (3.5-5.1) Chloride 103 mmol/L mmol/L (98-107) Carbon Dioxide 21 mmol/L L mmol/ L (22-29) Anion Gap 14.7 (5-19) BUN 7 mg/dL mg/dL (6-20) Creatinine 0.7 mg/dL mg/dL (0.5-0.9) GFR Calculation 104.6 mL/min mL/m in (90-130) Glucose 84 mg/dL mg/dL (65-115) Calculated Osmolal ity 277 mOsm/kg L mOs m/kg (285-295) Lactic Acid 1.4 mmol/L mmol/L (0.5-2.2) Calcium 8.8 mg/dL mg/dL (8.5-10.5) Total Bilirubin 0.4 mg/dL mg/dL (0.15-1.2) AST 17 U/L U/L (0-32) ALT 10 U/L U/L (0-33) Alkaline Phosphata se 67 IU/L IU/L (35-105) Total Protein 7.1 g/dL g/dL (6.6-8.7) Albumin 3.8 g/dL g/dL (3.5-5.2) Globulin 3.3 g/dL g/dL (1.3-4.6) Lipase 13 U/L U/L (13-60) HCG, Qual Negative (Negative) Urine Color Urine Appearance Urine pH Ur Specific Gravit y Urine Protein Urine Glucose (UA) Urine Ketones Urine Blood Urine Nitrate Urine Bilirubin Urine Urobilinogen Ur Leukocyte Norma ase Urine RBC Urine WBC Ur Squamous Epith Cells Amorphous Sediment Urine Bacteria Urine Mucus SARS-CoV-2 Ag (Rap id) Discharge Plan Discharge Patient Disposition: Home Clinical Impression: Gastroenteritis, Dehydration Condition: Stable Prescriptions: Continued Reglan 10 mg tablet 10 mg PO Q6H PRN (Reason: nausea and vomiting) Qty: 15 RF: 0 Discontinued clindamycin HCl 300 mg capsule 300 mg PO Q8H 7 Days Qty: 21 RF: 0 No Action Amanda 14 mcg/24 hrs (3 yrs) 13.5 mg intrauterine device INTRAUTERI RF: 0 albuterol sulfate [ProAir HFA] 90 mcg/actuation HFA aerosol inhaler 2 puff INHALATION Q6H PRN (Reason: shortness of breath or wheezing) Qty: 8.5 RF: 1 tramadol 50 mg tablet 50 mg PO TID PRN (Reason: pain) Qty: 7 RF: 0 Discharge Orders: Discharge ED (Routine); Ordered 05/14/21 Ordered By: Kim Keane Referrals: Yue Wahl DO [Primary Care Provider] - Activity Restrictions/Additional Instructions: Please discontinue the clindamycin. Please follow-up with a dentist as soon as possible in regards to your wisdom tooth discomfort. You may take the prescription Reglan as needed for nausea/vomiting. Please begin a bland liquid diet over the next 24 to 48 hours and advance as tolerated. Please follow-up with your primary care provider at the end of the week/early next week if symptoms persist. Return to the emergency department for severe abdominal pain, repetitive episodes of vomiting, bloody vomit, diffuse foul-smelling diarrhea, continued fevers, or any other concerns you may have. I hope you begin to feel better soon. Coding Level of Care Code ED [employer] Worker for Chg Fwd Exam Comprehensive Documented by User: Angel Leone DO 05/19/21 06:39 HPI - Nausea/Vomiting/Diarrhea General: Chief complaint: Nausea/Vomiting/Diarrhea Stated complaint: Vomiting, Fever Time Seen by Provider: 05/14/21 07:25 PFSH ED PFSH: Medical History (Updated 05/17/21 @ 00:01 by ) Anxiety Asthma Depression History of 2019 novel coronavirus disease (COVID-19) Migraine without aura No pertinent past medical history neghx: htn,dm,thyroid,dvt/pe PCP: Dr. Wahl Surgical History History of laparoscopic cholecystectomy (~07/2017) History of tonsillectomy Status post myringotomy with insertion of tube Family History Grandmother Cancer Stroke Maternal Grandfather Diabetes Maternal Cancer Hypertension Maternal Mother Psychiatric illness Depression and anxiety Diabetes Hypertension Sister Psychiatric illness Depression and anxiety Thyroid disease Denies family history of Colon cancer Ovarian cancer Hypercholesteremia Breast cancer Uterine cancer Social History Smoking and tobacco status: never smoked Other details last substance use: Denies drug use Course Vital Signs: Vital signs: Vital Signs Temperature 99.4 F 05/14/21 09:11 Pulse Rate 95 05/14/21 10:39 Respiratory Rate 15 05/14/21 10:39 Blood Pressure 128/71 05/14/21 10:39 Pulse Oximetry 98 05/14/21 10:39 MDM - Nausea/Vomiting/Diarrhea MDM Narrative: Medical decision making narrative: Reviewed case with MIGUEL Montanez, agree with assessment and plan Lab Data: Labs: Lab Results 05/14/21 05/14/21 05/14/21 08:00 08:00 08:00 WBC 6.0 10^3/uL 10^3/ uL (4.0-10.0) RBC 4.52 10^6/uL 10^6 /uL (4.1-5.3) Hgb 13.0 g/dL g/dL (11.5-15.3) Hct 38.0 % % (37.0-47.0) MCV 84.1 fl fl (81-99) MCH 28.8 pg pg (28.0-34.0) MCHC 34.2 g/dL g/dL (30.0-36.0) RDW 12.5 % % (12.1-15.1) Plt Count 173 10^3/cmm 10^3 /cmm (130-400) MPV 11.8 fL H fL (7.4-10.4) Neut % (Auto) 84.6 % % Lymph % (Auto) 9.8 % % [place] % (Auto) 5.0 % % Eos % (Auto) 0.0 % % Baso % (Auto) 0.3 % % Neut # (Auto) 5.08 10^3/uL 10^3 /uL (1.8-7.7) Lymph # (Auto) 0.6 10^3/uL L 10^ 3/uL (0.8-4.8) [place] # (Auto) 0.3 10^3/uL 10^3/ uL (0.2-0.9) Eos # (Auto) 0.0 10^3/uL 10^3/ uL (0.0-0.8) Baso # (Auto) 0.0 10^3/uL 10^3/ uL (0.0-0.1) Nucleated RBC % (a uto) 0 % % Nucleated RBCs # 0.0 /100WBC /100W BC Sodium Cancelled Potassium Cancelled Chloride Cancelled Carbon Dioxide Cancelled Anion Gap Cancelled BUN Cancelled Creatinine Cancelled GFR Calculation Cancelled Glucose Cancelled Calculated Osmolal ity Cancelled Lactic Acid Calcium Cancelled Total Bilirubin Cancelled AST Cancelled ALT Cancelled Alkaline Phosphata se Cancelled Total Protein Cancelled Albumin Cancelled Globulin Cancelled Lipase Cancelled HCG, Qual Cancelled Urine Color Urine Appearance Urine pH Ur Specific Gravit y Urine Protein Urine Glucose (UA) Urine Ketones Urine Blood Urine Nitrate Urine Bilirubin Urine Urobilinogen Ur Leukocyte Norma ase Urine RBC Urine WBC Ur Squamous Epith Cells Amorphous Sediment Urine Bacteria Urine Mucus SARS-CoV-2 Ag (Rap id) 05/14/21 05/14/21 05/14/21 08:00 08:00 08:00 WBC RBC Hgb Hct MCV MCH MCHC RDW Plt Count MPV Neut % (Auto) Lymph % (Auto) [place] % (Auto) Eos % (Auto) Baso % (Auto) Neut # (Auto) Lymph # (Auto) [place] # (Auto) Eos # (Auto) Baso # (Auto) Nucleated RBC % (a uto) Nucleated RBCs # Sodium Potassium Chloride Carbon Dioxide Anion Gap BUN Creatinine GFR Calculation Glucose Calculated Osmolal ity Lactic Acid Cancelled Calcium Total Bilirubin AST ALT Alkaline Phosphata se Total Protein Albumin Globulin Lipase HCG, Qual Urine Color Yellow (Yellow) Urine Appearance Sl hazy (CLEAR) Urine pH 7 (5-7) Ur Specific Gravit y 1.005 (1.005-1.030) Urine Protein Neg (Negative) Urine Glucose (UA) Norm (Normal) Urine Ketones 3+ H (Negative) Urine Blood 3+ H (Negative) Urine Nitrate Negative (Negative) Urine Bilirubin Neg (Negative) Urine Urobilinogen Norm mg/dL mg/dL (Negative) Ur Leukocyte Norma ase Negative (Negative) Urine RBC 10-15 /hpf H /hpf (0-2) Urine WBC None /hpf /hpf (0-5) Ur Squamous Epith Cells 40-55 /hpf H /hpf (0-5) Amorphous Sediment Not Reportable Urine Bacteria 2+ /hpf H /hpf (NONE) Urine Mucus Trace /hpf /hpf SARS-CoV-2 Ag (Rap id) Negative (Negative) 05/14/21 05/14/21 05/14/21 08:32 08:32 08:32 WBC RBC Hgb Hct MCV MCH MCHC RDW Plt Count MPV Neut % (Auto) Lymph % (Auto) [place] % (Auto) Eos % (Auto) Baso % (Auto) Neut # (Auto) Lymph # (Auto) [place] # (Auto) Eos # (Auto) Baso # (Auto) Nucleated RBC % (a uto) Nucleated RBCs # Sodium 135 mmol/L L mmol /L (136-145) Potassium 3.7 mmol/L mmol/L (3.5-5.1) Chloride 103 mmol/L mmol/L (98-107) Carbon Dioxide 21 mmol/L L mmol/ L (22-29) Anion Gap 14.7 (5-19) BUN 7 mg/dL mg/dL (6-20) Creatinine 0.7 mg/dL mg/dL (0.5-0.9) GFR Calculation 104.6 mL/min mL/m in (90-130) Glucose 84 mg/dL mg/dL (65-115) Calculated Osmolal ity 277 mOsm/kg L mOs m/kg (285-295) Lactic Acid 1.4 mmol/L mmol/L (0.5-2.2) Calcium 8.8 mg/dL mg/dL (8.5-10.5) Total Bilirubin 0.4 mg/dL mg/dL (0.15-1.2) AST 17 U/L U/L (0-32) ALT 10 U/L U/L (0-33) Alkaline Phosphata se 67 IU/L IU/L (35-105) Total Protein 7.1 g/dL g/dL (6.6-8.7) Albumin 3.8 g/dL g/dL (3.5-5.2) Globulin 3.3 g/dL g/dL (1.3-4.6) Lipase 13 U/L U/L (13-60) HCG, Qual Negative (Negative) Urine Color Urine Appearance Urine pH Ur Specific Gravit y Urine Protein Urine Glucose (UA) Urine Ketones Urine Blood Urine Nitrate Urine Bilirubin Urine Urobilinogen Ur Leukocyte Norma ase Urine RBC Urine WBC Ur Squamous Epith Cells Amorphous Sediment Urine Bacteria Urine Mucus SARS-CoV-2 Ag (Rap id) Discharge Plan Discharge Patient Disposition: Home Clinical Impression: Gastroenteritis, Dehydration Condition: Stable Prescriptions: Continued Reglan 10 mg tablet 10 mg PO Q6H PRN (Reason: nausea and vomiting) Qty: 15 RF: 0 Discontinued clindamycin HCl 300 mg capsule 300 mg PO Q8H 7 Days Qty: 21 RF: 0 No Action Amanda 14 mcg/24 hrs (3 yrs) 13.5 mg intrauterine device INTRAUTERI RF: 0 albuterol sulfate [ProAir HFA] 90 mcg/actuation HFA aerosol inhaler 2 puff INHALATION Q6H PRN (Reason: shortness of breath or wheezing) Qty: 8.5 RF: 1 tramadol 50 mg tablet 50 mg PO TID PRN (Reason: pain) Qty: 7 RF: 0 Discharge Orders: Discharge ED (Routine); Ordered 05/14/21 Ordered By: Kim Keane Referrals: Yue Wahl DO [Primary Care Provider] - Activity Restrictions/Additional Instructions: Please discontinue the clindamycin. Please follow-up with a dentist as soon as possible in regards to your wisdom tooth discomfort. You may take the prescription Reglan as needed for nausea/vomiting. Please begin a bland liquid diet over the next 24 to 48 hours and advance as tolerated. Please follow-up with your primary care provider at the end of the week/early next week if symptoms persist. Return to the emergency department for severe abdominal pain, repetitive episodes of vomiting, bloody vomit, diffuse foul-smelling diarrhea, continued fevers, or any other concerns you may have. I hope you begin to feel better soon. Coding Level of Care Code ED [employer] Tr[employer] Worker for Chg Fwd Exam Comprehensive
[2021-05-14 08:11] VITALS: BP 122/78; PULSE 98; RESP 18; O2SAT 98
[2021-05-14 08:12] LABS: Basophils % 0.3 %; Lymphocytes # 0.6 10^3/uL (0.8-4.8); Lymphocytes % 9.8 %; Mean Corpuscular HGB Conc 34.2 g/dL (30.0-36.0); Mean Corpuscular Hemoglobin 28.8 pg (28.0-34.0); Mean Corpuscular Volume 84.1 fl (81-99); Mean Platelet Volume 11.8 fL (7.4-10.4); Monocytes # 0.3 10^3/uL (0.2-0.9); Neutrophils # 5.08 10^3/uL (1.8-7.7); Neutrophils % 84.6 %; Nucleated Red Blood Cells % 0 %; Platelet Count 173 10^3/cmm (130-400); Red Blood Count 4.52 10^6/uL (4.1-5.3); Red Cell Distribution Width 12.5 % (12.1-15.1)
[2021-05-14] MEDS: acetaminophen 500 mg Tablet 1000 MG PO (08:15)
[2021-05-14] MEDS: ondansetron 2 mg/ML SDV 2 mL 4 MG IVP (08:15)
[2021-05-14] MEDS: sodium chloride 0.9% 1,000 ML 999 ML IV ×2 (08:15→09:27)
[2021-05-14 08:17] VITALS: BP 112/60; BP 113/70; BP 122/67; PULSE 108; PULSE 87; PULSE 94
[2021-05-14 08:24] LABS: Add Urine Microscopic? YES; Bilirubin Urine Neg (Negative); Blood Urine 3+ (Negative); Glucose Urine UA Norm (Normal); Ketones Urine 3+ (Negative); Leukocyte Esterase Urine Negative (Negative); Nitrate Urine Negative (Negative); Protein Urine Neg (Negative); Specific Gravity, Urine 1.005 (1.005-1.030); Urine Appearance SL Hazy (CLEAR); Urine Color Yellow (Yellow); Urobilinogen Urine Norm (Negative); pH Urine 7 (5-7)
[2021-05-14 08:46] LABS: SARS Covid-2 Antigen Negative (Negative)
[2021-05-14 08:51] LABS: Add Urine Culture? No; Bacteria Urine 2+ /hpf; Mucus Urine TRACE /hpf; Squamous Epithelial Cell Urine 40-55 /hpf (0-5)
[2021-05-14 08:53] LABS: HCG, Serum Qual Negative (Negative)
[2021-05-14 08:59] LABS: Lactic Sepsis W/Reflex 1.4 mmol/L (0.5-2.2)
[2021-05-14 09:00] LABS: Alanine Aminotransferase 10 U/L (0-33); Albumin Level 3.8 g/dL (3.5-5.2); Alkaline Phosphatase 67 IU/L (35-105); Anion Gap 14.7 (5-19); Aspartate Amino Transferase 17 U/L (0-32); Blood Urea Nitrogen 7 mg/dL (6-20); Calcium 8.8 mg/dL (8.5-10.5); Carbon Dioxide 21 mmol/L (22-29); Chloride 103 mmol/L (98-107); Globulin 3.3 g/dL (1.3-4.6); Glomerular Filtration Rate 104.6 mL/min (90-130); Glucose 84 mg/dL (65-115); Lipase 13 U/L (13-60); Osmolality Calculated 277 mOsm/kg (285-295); Potassium 3.7 mmol/L (3.5-5.1); Sodium 135 mmol/L (136-145); Total Bilirubin 0.4 mg/dL (0.15-1.2); Total Protein 7.1 g/dL (6.6-8.7)
[2021-05-14 09:11] VITALS: BP 104/64; PULSE 108; RESP 15; TEMP 37.4; O2SAT 98
[2021-05-14] MEDS: metoclopramide 5 mg/mL SDV 2 mL 10 MG IVP (09:26)
[2021-05-14] MEDS: lidocaine 2% viscous 15 ML, aluminum-mag hydrox-simethicon 30 ML, sucralfate oral liq 1 GM PO (09:27)
[2021-05-14 10:00] VITALS: BP 128/71; PULSE 95; RESP 15; O2SAT 98
[2021-05-14 10:39] VITALS: BP 128/71; PULSE 95; RESP 15; O2SAT 98
== END 2021-05-14 10:39 | disposition home or self-care (01) ==
PROVIDERS: Emergency Provider Physician Assistant; PCP Family Medicine
DX: K52.9 Noninfective gastroenteritis and colitis, unspecified (principal); E86.0 Dehydration; Z20.822 Contact with and (suspected) exposure to COVID-19
CPT/HCPCS: 36415; 80053; 81001; 83605; 83690; 84703; 85025; 87426; 96361; 96374; 96375; 99284; J2405; J2765; J7030

== ENCOUNTER → 2021-09-12 14:36 | Outpatient (BNVA) | payer OTHER, SELFPAY | PROVIDERS: PCP Family Medicine; Visit Provider Family Medicine | DX: Z13.6 Encounter for screening for cardiovascular disorders (principal); R59.0 Localized enlarged lymph nodes | CPT/HCPCS: 85025 ==

== ENCOUNTER → 2021-09-26 15:17 | Outpatient (BNVA) | payer OTHER, SELFPAY | PROVIDERS: PCP Family Medicine; Visit Provider Family Medicine | DX: R59.0 Localized enlarged lymph nodes (principal) | CPT/HCPCS: 71046 ==

== ENCOUNTER 2021-10-10 08:56 | Outpatient (CLI) | payer OTHER, SELFPAY ==
--- NOTE | 2021-10-10 14:15 | US_ITS ---
WS: [id number] INDICATION: RIGHT axillary pain TECHNIQUE: Ultrasound RIGHT axilla FINDINGS: Ultrasound RIGHT axilla area of concern. Normal sized lymph nodes seen in the area of inter est RIGHT axilla. Largest lymph nodes measure 1.4 x 1.3 CM. These have a normal appearance. No suspic ious abnormality RIGHT axilla. US/US soft tissue/extremity 31611 IMPRESSION: Normal-appearing lymph nodes in the RIGHT axilla.
== END 2021-10-10 08:57 | disposition home or self-care (01) ==
LOC: RAD 08:57
PROVIDERS: PCP Family Medicine; Visit Provider Family Medicine
DX: R59.0 Localized enlarged lymph nodes (principal)
CPT/HCPCS: 76882

== ENCOUNTER 2021-10-31 08:35 | Outpatient (CLI) | payer OTHER, SELFPAY ==
--- NOTE | 2021-10-31 09:30 | US_ITS ---
WS: [id number] ULTRASOUND BREAST RIGHT TECHNIQUE: Ultrasound right breast focused area of concern. CLINICAL INFORMATION: right breast pain COMPARISON: October 10, 2021 FINDINGS: Ultrasound RIGHT breast 6 to 12:00 position and axilla. Dense underlying parenchymal tissue at the 6 to 12:00 position. No suspicious cystic or solid lesions. No lesions to target for biopsy. Normal-moe earing lymph nodes in the RIGHT axilla. Findings are benign. US/US breast RT complete [id number] IMPRESSION: Recommend annual screening mammography age 40
== END 2021-10-31 08:36 | disposition home or self-care (01) ==
PROVIDERS: PCP Family Medicine; Visit Provider Family Medicine
DX: N64.4 Mastodynia (principal)
CPT/HCPCS: 76641

== ENCOUNTER 2021-12-19 21:07 | Emergency (ER) | payer OTHER, SELFPAY ==
[2021-12-19 21:31] VITALS: BP 124/79; PULSE 82; RESP 20; TEMP 36.6; O2SAT 97; BMI 30.2
--- NOTE | 2021-12-19 22:40 | W.ED.ANXIETY ---
Documented by User: DARIAN Palmer 12/20/21 00:17 HPI - Anxiety General: Chief Complaint: Anxiety Stated Complaint: N\V ABD Pain Time Seen by Provider: 12/19/21 22:39 History of Present Illness: 21-year-old female comes in today with complaints of chest discomfort and nausea and vomiting. Patient reports that they had eaten supper at a [place] restaurant and then was walking around [facility] when she suddenly started having some chest discomfort and then started throwing up. Patient reports some improvement in the pain since arriving to the ER. Patient has had her gallbladder removed about 5 years ago. Patient does have a history of asthma and anxiety. Patient appears nontoxic. Patient appears in mild to moderate pain. Associated symptoms: Reports chest pain, nausea and vomiting; Deny fever(s) Review of Systems General: Reports: 10 or more systems reviewed and unremarkable except in HPI and below Const: Denies: fever(s) ENMT: Denies: throat pain Card: Reports: chest pain Resp: Denies: dyspnea GI: Reports: nausea and vomiting PFSH ED PFSH: Medical History Anxiety Asthma Depression History of 2019 novel coronavirus disease (COVID-19) Migraine without aura No pertinent past medical history neghx: htn,dm,thyroid,dvt/pe PCP: Dr. Wahl Surgical History History of laparoscopic cholecystectomy (~07/2017) History of tonsillectomy Status post myringotomy with insertion of tube Family History Grandmother Cancer Stroke Maternal Grandfather Diabetes Maternal Cancer Hypertension Maternal Mother Psychiatric illness Depression and anxiety Diabetes Hypertension Sister Psychiatric illness Depression and anxiety Thyroid disease Denies family history of Colon cancer Ovarian cancer Hypercholesteremia Breast cancer Uterine cancer Social History Smoking and tobacco status: never smoked Other details last substance use: Denies drug use Female Reproductive History: Date of last menstrual period: 04/25/21 Physical Exam Const: COMMON NORMALS: alert HENMT: COMMON NORMALS: normocephalic HEAD & SCALP: normocephalic Neuro: SENSORIUM/ORIENTATION: Yes alert Course Vital Signs: Vital signs: Vital Signs Temperature 97.7 F 12/20/21 00:23 Pulse Rate 92 12/20/21 00:23 Respiratory Rate 18 12/20/21 00:23 Blood Pressure 96/76 12/19/21 23:33 Pulse Oximetry 100 12/20/21 00:23 MDM - Anxiety Medical Decision Making 21-year-old female comes in today for complaints of substernal chest discomfort. On exam abdomen was tender in the midepigastrium and some chest wall tenderness was noted on palpation. Respirations were even lungs were clear to auscultation. Vital signs were normal. Differential diagnosis includes not limited to costochondritis, GERD, ACS. EKG was normal. Cardiac enzyme troponin was negative. Lipase CMP and CBC were unremarkable. Patient was treated with GI cocktail with good results. Patient be started on pantoprazole for the next 4 weeks. Reviewed exam with patient with recommendations for treatment and follow-up. Patient reported understanding. Lab Data : 12/19/21 23:30 12/19/21 23:30 Laboratory Results WBC 10.4 10^3/uL (4.0-10.0) H 12/19/21 23:30 RBC 4.45 10^6/uL (4.1-5.3) 12/19/21 23:30 Hgb 12.7 g/dL (11.5-15.3) 12/19/21 23:30 Hct 40.0 % (37.0-47.0) 12/19/21 23: MCV 89.9 fl (81-99) 12/19/21 23: MCH 28.5 pg (28.0-34.0) 12/19/21 23:30 MCHC 31.8 g/dL (30.0-36.0) 12/19/21 23:30 RDW 12.5 % (12.1-15.1) 12/19/21 23: Plt Count 202 10^3/cmm (130-400) 12/19/21 23:30 MPV 11.8 fL (7.4-10.4) H 12/19/21 23:30 Neut % (Auto) 57.9 % 12/19/21 23:30 Lymph % (Auto) 35.0 % 12/19/21 23:30 [place] % (Auto) 5.2 % 12/19/21 23:30 Eos % (Auto) 1.0 % 12/19/21 23:30 Baso % (Auto) 0.5 % 12/19/21 23:30 Neut # (Auto) 6.04 10^3/uL (1.8-7.7) 12/19/21 23:30 Lymph # (Auto) 3.7 10^3/uL (0.8-4.8) 12/19/21 23:30 [place] # (Auto) 0.5 10^3/uL (0.2-0.9) 12/19/21 23:30 Eos # (Auto) 0.1 10^3/uL (0.0-0.8) 12/19/21 23: Baso # (Auto) 0.1 10^3/uL (0.0-0.1) 12/19/21 23:30 Nucleated RBC % (auto) 0 % 12/19/21 23: Nucleated RBCs # 0.0 /100WBC 12/19/21 23:30 Sodium 134 mmol/L (136-145) L 12/19/21 23:30 Potassium 3.8 mmol/L (3.5-5.1) 12/19/21 23: Chloride 101 mmol/L (98-107) 12/19/21 23: Carbon Dioxide 21 mmol/L (22-29) L 12/19/21 23:30 Anion Gap 15.8 (5-19) 12/19/21 23:30 BUN 8 mg/dL (6-20) 12/19/21 23: Creatinine 0.7 mg/dL (0.5-0.9) 12/19/21 23:30 GFR Calculation 103.7 mL/min (90-130) 12/19/21 23:30 Glucose 90 mg/dL (65-115) 12/19/21 23: Calculated Osmolality 276 mOsm/kg (285-295) L 12/19/21 23:30 Calcium 9.6 mg/dL (8.5-10.5) 12/19/21 23:30 Total Bilirubin 0.3 mg/dL (0.15-1.2) 12/19/21 23:30 AST 15 U/L (0-32) 12/19/21 23:30 ALT 11 U/L (0-33) 12/19/21 23:30 Alkaline Phosphatase 70 IU/L (35-105) 12/19/21 23:30 Troponin T Gen 5 ng/L 6 ng/L (0-10) 12/19/21 23:30 Total Protein 6.7 g/dL (6.6-8.7) 12/19/21 23:30 Albumin 4.0 g/dL (3.5-5.2) 12/19/21 23:30 Globulin 2.7 g/dL (1.3-4.6) 12/19/21 23:30 Lipase 26 U/L (13-60) 12/19/21 23:30 Discharge Plan Discharge Patient Disposition: Home Clinical Impression: Chest pain due to GERD Condition: Stable Prescriptions: New pantoprazole 40 mg tablet,delayed release (DR/EC) 40 mg PO QAM 28 Days Qty: 28 0RF No Action Amanda 14 mcg/24 hrs (3 yrs) 13.5 mg intrauterine device INTRAUTERI 0RF Label Comments: Placed 12/2017. diclofenac sodium 75 mg tablet,delayed release (DR/EC) 75 mg PO BID PRN (Reason: pain) Qty: 20 0RF Rx Instructions: Take with food albuterol sulfate [ProAir HFA] 90 mcg/actuation HFA aerosol inhaler 2 puff INHALATION Q6H PRN (Reason: shortness of breath or wheezing) Qty: 8.5 1RF gabapentin 300 mg capsule 300 mg PO TID 30 Days Qty: 120 0RF Rx Instructions: TAKE 1 IN AM, 1 AT NOON, 2 IN EVENING Discharge Orders: Discharge ED (Routine); Ordered 12/20/21 Ordered By: Marky Sun Referrals: Yue Wahl DO [Primary Care Provider] - Discharge Diet: Usual diet Discharge Activity: Increase activity as tolerated Patient Instructions: GERD (Gastroesophageal Reflux Disease) (ED) Activity Restrictions/Additional Instructions: Take medication as directed. Drink plenty of fluids. Make sure to take pantoprazole 30 minutes before your first meal of the day. Follow-up with primary care for further instruction. Return to ER for new concerns. Coding Level of Care Code ED Business Continuity Specialist for Chg Fwd Exam Expanded Problem Focused Documented by User: Enoch Landaverde DO 12/20/21 00:50 HPI - Anxiety General: Chief Complaint: Anxiety Stated Complaint: N\V ABD Pain Time Seen by Provider: 12/19/21 22:39 PFSH ED PFSH: Medical History Anxiety Asthma Depression History of 2019 novel coronavirus disease (COVID-19) Migraine without aura No pertinent past medical history neghx: htn,dm,thyroid,dvt/pe PCP: Dr. Wahl Surgical History History of laparoscopic cholecystectomy (~07/2017) History of tonsillectomy Status post myringotomy with insertion of tube Family History Grandmother Cancer Stroke Maternal Grandfather Diabetes Maternal Cancer Hypertension Maternal Mother Psychiatric illness Depression and anxiety Diabetes Hypertension Sister Psychiatric illness Depression and anxiety Thyroid disease Denies family history of Colon cancer Ovarian cancer Hypercholesteremia Breast cancer Uterine cancer Social History Smoking and tobacco status: never smoked Other details last substance use: Denies drug use Course Vital Signs: Vital signs: Vital Signs Temperature 97.7 F 12/20/21 00:23 Pulse Rate 92 12/20/21 00:23 Respiratory Rate 18 12/20/21 00:23 Blood Pressure 96/76 12/19/21 23:33 Pulse Oximetry 100 12/20/21 00:23 MDM - Anxiety Medical Decision Making 21-year-old female comes in today for complaints of substernal chest discomfort. On exam abdomen was tender in the midepigastrium and some chest wall tenderness was noted on palpation. Respirations were even lungs were clear to auscultation. Vital signs were normal. Differential diagnosis includes not limited to costochondritis, GERD, ACS. EKG was normal. Cardiac enzyme troponin was negative. Lipase CMP and CBC were unremarkable. Patient was treated with GI cocktail with good results. Patient be started on pantoprazole for the next 4 weeks. Reviewed exam with patient with recommendations for treatment and follow-up. Patient reported understanding. This patient was originally seen by DARIAN Vazquez.? I agree with his history, evaluation, and treatment. Lab Data : 12/19/21 23:30 12/19/21 23: Laboratory Results WBC 10.4 10^3/uL (4.0-10.0) H 12/19/21 23: RBC 4.45 10^6/uL (4.1-5.3) 12/19/21 23: Hgb 12.7 g/dL (11.5-15.3) 12/19/21: Hct 40.0 % (37.0-47.0) 12/19/21 23: MCV 89.9 fl (81-99) 12/19/21 23: MCH 28.5 pg (28.0-34.0) 12/19/21 23: MCHC 31.8 g/dL (30.0-36.0) 12/19/21 23: RDW 12.5 % (12.1-15.1) 12/19/21: Plt Count 202 10^3/cmm (130-400) 12/19/21 23: MPV 11.8 fL (7.4-10.4) H 12/19/21 23:30 Neut % (Auto) 57.9 % 12/19/21: Lymph % (Auto) 35.0 % 12/19/21 23: Fisher % (Auto) 5.2 % 12/19/21 23: Eos % (Auto) 1.0 % 12/19/21 23: Baso % (Auto) 0.5 % 12/19/21: Neut # (Auto) 6.04 10^3/uL (1.8-7.7) 12/19/21 23: Lymph # (Auto) 3.7 10^3/uL (0.8-4.8) 12/19/21 23: Fisher # (Auto) 0.5 10^3/uL (0.2-0.9) 12/19/21 23:30 Eos # (Auto) 0.1 10^3/uL (0.0-0.8) 12/19/21 23:30 Baso # (Auto) 0.1 10^3/uL (0.0-0.1) 12/19/21 23:30 Nucleated RBC % (auto) 0 % 12/19/21 23: Nucleated RBCs # 0.0 /100WBC 12/19/21 23:30 Sodium 134 mmol/L (136-145) L 12/19/21 23: Potassium 3.8 mmol/L (3.5-5.1) 12/19/21 23:30 Chloride 101 mmol/L (98-107) 12/19/21: Carbon Dioxide 21 mmol/L (22-29) L 12/19/21: Anion Gap 15.8 (5-19) 12/19/21 23:30 BUN 8 mg/dL (6-20) 12/19/21 23: Creatinine 0.7 mg/dL (0.5-0.9) 12/19/21: GFR Calculation 103.7 mL/min (90-130) 12/19/21: Glucose 90 mg/dL (65-115) 12/19/21: Calculated Osmolality 276 mOsm/kg (285-295) L 12/19/21: Calcium 9.6 mg/dL (8.5-10.5) 12/19/21: Total Bilirubin 0.3 mg/dL (0.15-1.2) 12/19/21: AST 15 U/L (0-32) 12/19/21: ALT 11 U/L (0-33) 12/19/21 23:30 Alkaline Phosphatase 70 IU/L (35-105) 12/19/21 23:30 Troponin T Gen 5 ng/L 6 ng/L (0-10) 12/19/21: Total Protein 6.7 g/dL (6.6-8.7) 12/19/21 23: Albumin 4.0 g/dL (3.5-5.2) 12/19/21: Globulin 2.7 g/dL (1.3-4.6) 12/19/21: Lipase 26 U/L (13-60) 12/19/21 23:30 Discharge Plan Discharge Patient Disposition: Home Clinical Impression: Chest pain due to GERD Condition: Stable Prescriptions: New pantoprazole 40 mg tablet,delayed release (DR/EC) 40 mg PO QAM 28 Days Qty: 28 0RF No Action Amanda 14 mcg/24 hrs (3 yrs) 13.5 mg intrauterine device INTRAUTERI 0RF Label Comments: Placed 12/2017. diclofenac sodium 75 mg tablet,delayed release (DR/EC) 75 mg PO BID PRN (Reason: pain) Qty: 20 0RF Rx Instructions: Take with food albuterol sulfate [ProAir HFA] 90 mcg/actuation HFA aerosol inhaler 2 puff INHALATION Q6H PRN (Reason: shortness of breath or wheezing) Qty: 8.5 1RF gabapentin 300 mg capsule 300 mg PO TID 30 Days Qty: 120 0RF Rx Instructions: TAKE 1 IN AM, 1 AT NOON, 2 IN EVENING Discharge Orders: Discharge ED (Routine); Ordered 12/20/21 Ordered By: Marky Sun Referrals: Yue Wahl DO [Primary Care Provider] - Discharge Diet: Usual diet Discharge Activity: Increase activity as tolerated Patient Instructions: GERD (Gastroesophageal Reflux Disease) (ED) Activity Restrictions/Additional Instructions: Take medication as directed. Drink plenty of fluids. Make sure to take pantoprazole 30 minutes before your first meal of the day. Follow-up with primary care for further instruction. Return to ER for new concerns. Coding Level of Care Code ED Business Continuity Specialist for Hanny Fwd Exam Expanded Problem Focused
[2021-12-19 22:58] VITALS: BP 110/63; PULSE 60; RESP 16; O2SAT 100
[2021-12-19] MEDS: lidocaine 2% viscous 15 ML, aluminum-mag hydrox-simethicon 30 ML, sucralfate oral liq 1 GM PO (23:02)
[2021-12-19 23:33] VITALS: BP 96/76; PULSE 79; RESP 18; O2SAT 98
[2021-12-19 23:33] LABS: Basophils # 0.1 10^3/uL (0.0-0.1); Basophils % 0.5 %; Eosinophils # 0.1 10^3/uL (0.0-0.8); Hemoglobin 12.7 g/dL (11.5-15.3); Lymphocytes # 3.7 10^3/uL (0.8-4.8); Mean Corpuscular HGB Conc 31.8 g/dL (30.0-36.0); Mean Corpuscular Hemoglobin 28.5 pg (28.0-34.0); Mean Corpuscular Volume 89.9 fl (81-99); Mean Platelet Volume 11.8 fL (7.4-10.4); Monocytes # 0.5 10^3/uL (0.2-0.9); Monocytes % 5.2 %; Neutrophils # 6.04 10^3/uL (1.8-7.7); Neutrophils % 57.9 %; Nucleated Red Blood Cells % 0 %; Platelet Count 202 10^3/cmm (130-400); Red Blood Count 4.45 10^6/uL (4.1-5.3); Red Cell Distribution Width 12.5 % (12.1-15.1); White Blood Count 10.4 10^3/uL (4.0-10.0)
[2021-12-19 23:53] LABS: Alanine Aminotransferase 11 U/L (0-33); Alkaline Phosphatase 70 IU/L (35-105); Blood Urea Nitrogen 8 mg/dL (6-20); Calcium 9.6 mg/dL (8.5-10.5); Carbon Dioxide 21 mmol/L (22-29); Chloride 101 mmol/L (98-107); Globulin 2.7 g/dL (1.3-4.6); Glomerular Filtration Rate 103.7 mL/min (90-130); Glucose 90 mg/dL (65-115); Lipase 26 U/L (13-60); Osmolality Calculated 276 mOsm/kg (285-295); Sodium 134 mmol/L (136-145); Total Bilirubin 0.3 mg/dL (0.15-1.2); Total Protein 6.7 g/dL (6.6-8.7)
[2021-12-19 23:54] LABS: Troponin T (5th) Once 6 ng/L (0-10)
[2021-12-20] VITALS: PULSE 92; RESP 17; O2SAT 100
[2021-12-20 00:06] LABS: Anion Gap 15.8 (5-19); Potassium 3.8 mmol/L (3.5-5.1)
[2021-12-20 00:07] LABS: Aspartate Amino Transferase 15 U/L (0-32)
[2021-12-20] MEDS: pantoprazole DR 40 mg Tablet PO (00:22)
[2021-12-20 00:23] VITALS: PULSE 92; RESP 18; TEMP 36.5; O2SAT 100
== END 2021-12-20 00:29 | disposition home or self-care (01) ==
PROVIDERS: Emergency Provider Nurse Practitioner Family; PCP Family Medicine
DX: R07.9 Chest pain, unspecified (principal); K21.9 Gastro-esophageal reflux disease without esophagitis
CPT/HCPCS: 80053; 83690; 84484; 85025; 99283

== ENCOUNTER → 2022-03-13 15:09 | Outpatient (BNVA) | payer OTHER, SELFPAY | PROVIDERS: PCP Family Medicine; Visit Provider Obstetrics & Gynecology | DX: Z12.4 Encounter for screening for malignant neoplasm of cervix (principal) | CPT/HCPCS: 88175 ==

== ENCOUNTER 2022-04-07 07:39 | Outpatient (CLI) | payer OTHER, SELFPAY ==
--- NOTE | 2022-04-07 07:48 | US_ITS ---
WS: [id number] ULTRASOUND LEFT BREAST HISTORY: N63.22 - Unspecified lump in the left breast, upper inner quadrant, 21-year-old. COMPARISON: None available. TECHNIQUE: 2-D and Doppler. Ultrasound directed to the 11:00 area is directed. There is no abnormality. Dense fibroglandular tiss ue. Patient also indicates an additional palpable area at 8:00, 1 cm from the nipple. This is very urias perficial measuring 3 x 2 x 4 mm and probably represents a small sebaceous cyst. US/US breast LT limited* [id number] IMPRESSION: BI-RADS: 2-Benign FOLLOW-UP: See Report LACK OF RADIOGRAPHIC EVIDENCE OF MALIGNANCY SHOULD NOT DELAY BIOPSY IF A CLINIC ALLY SUSPICIOUS MASS IS PRESENT.
== END 2022-04-07 07:40 | disposition home or self-care (01) ==
LOC: RAD 07:39
PROVIDERS: PCP Family Medicine; Visit Provider Obstetrics & Gynecology
DX: N63.22 Unspecified lump in the left breast, upper inner quadrant (principal)
CPT/HCPCS: 76642

== ENCOUNTER → 2022-05-05 18:30 | Outpatient (BNVA) | payer OTHER, SELFPAY | PROVIDERS: PCP Family Medicine; Visit Provider Registered Nurse Neonatal Intensive Care | DX: J02.9 Acute pharyngitis, unspecified (principal); R11.2 Nausea with vomiting, unspecified | CPT/HCPCS: 87426; 87880 ==

== ENCOUNTER 2022-05-08 07:36 | Emergency (ER) | payer OTHER, SELFPAY ==
[2022-05-08 07:38] VITALS: BMI 31.1
[2022-05-08 07:44] VITALS: BP 127/80; PULSE 74; RESP 18; TEMP 36.4; O2SAT 96
--- NOTE | 2022-05-08 07:48 | W.ED.EAR ---
HPI - Ear Problem General: Chief complaint: Ear Stated complaint: ear infection, n/v Time Seen by Provider: 05/08/22 07:45 Source: patient Mode of arrival: ambulatory Limitations: no limitations History of Present Illness: 21 yr old female presents to the ER for bilateral ear pain, sore throat, cough, body aches and chills x 4 days. pt reports she went to urgent care on Wednesday and was told she had a bilateral ear infection. Pt reports she was tested for Covid and was neg. Pt reports she was suppose to get antibiotics however there has been an error and pt has been unable to get them. Pt reports she has not checked her temperature but thinks she has had one. She reports she has nausea and vomiting and has been unable to keep anything down for the last several days. Pt reports she has been able to keep sprite down for short amounts of time but that is all. Denies any other known sick contacts. Review of Systems General: Reports: 10 or more systems reviewed and unremarkable except in HPI and below PFSH ED PFSH: Medical History Anxiety Asthma Depression History of 2019 novel coronavirus disease (COVID-19) Migraine without aura No pertinent past medical history neghx: htn,dm,thyroid,dvt/pe PCP: Dr. Wahl Surgical History History of laparoscopic cholecystectomy (~07/2017) History of tonsillectomy Status post myringotomy with insertion of tube Family History Grandmother Cancer Stroke Maternal Grandfather Diabetes Maternal Cancer Hypertension Maternal Mother Psychiatric illness Depression and anxiety Diabetes Hypertension Sister Psychiatric illness Depression and anxiety Thyroid disease Denies family history of Colon cancer Ovarian cancer Hypercholesteremia Breast cancer Uterine cancer Social History Smoking and tobacco status: current every day smoker Other details last substance use: Denies drug use Female Reproductive History: Date of last menstrual period: 04/25/21 Physical Exam Const: COMMON NORMALS: no acute distress, average body habitus, patient oriented x3, no limitations, healthy appearing, alert and well nourished HENMT: COMMON NORMALS: normocephalic, atraumatic, external ears normal, TM's normal bilaterally, Normal external nose present, moist oral mucous membranes and oropharynx normal; nasal mucous membranes&turbinates abnorm HEAD & SCALP: normocephalic and atraumatic NOSE: Normal external nose present and Abnormal mucous membranes and turbinates present erythematous; nasal mucous membranes&turbinates abnorm EXTERNAL EAR: Yes external ears normal TYMPANIC MEMBRANE: TM's normal bilaterally Eye: CONJUNCTIVA: Yes conjunctival abnormal positive left conjunctival injection diffuse Neck/C-Spine: COMMON NORMALS: full ROM Lymph: LYMPHATIC: lymphadenopathy (L anterior cervical lymphadenopathy) Resp: COMMON NORMALS: normal respiratory effort, No retractions and clear to auscultation bilaterally AUSCULTATION: clear to auscultation bilaterally Cardio: COMMON NORMALS: regular rate, regular rhythm and No murmurs present (Cardio) RATE: regular rate RHYTHM: regular rhythm GI: COMMON NORMALS: Normal to inspection, nondistended, normoactive bowel sounds present, Soft to palpation and non-tender PALPATION: Yes Soft to palpation Extremity: COMMON NORMALS: normal to inspection and full ROM Neuro: COMMON NORMALS: patient oriented x3 SENSORIUM/ORIENTATION: Yes alert Psych: COMMON NORMALS: mental status grossly normal, Normal thought process present and cooperative THOUGHT PROCESS: Normal thought process present Skin: COMMON NORMALS: no rashes or lesions noted and no wounds GENERAL SKIN EXAM: no rashes or lesions noted Course ED course: 21 yr old female presents to the ER today for bilateral ear pain, congestion, sore throat, runny nose, cough, subjective fever and body aches. Pt went to urgent care on Wednesday and was told she had a bilateral ear infection and was suppose to be given antibiotics but reports they never got called in. Pt reports continued nausea and vomiting for the last several days. On exam, pts TMs are normal. There is mild cerumen in the L canal but otherwise no abnormalities. Pt appears to not feel well. Physical exam is otherwise unremarkable. We will check a Covid and Flu along with labs today. Vital Signs: Vital signs: Vital Signs Temperature 97.6 F 05/08/22 07:44 Pulse Rate 83 05/08/22 07:54 Respiratory Rate 20 H 05/08/22 07:54 Blood Pressure 114/60 05/08/22 07:54 Pulse Oximetry 97 05/08/22 07:54 Oxygen Delivery Me thod 05/08/22 07:54 MDM - Ear Medical Decision Making 21 yr old female presents to the ER today for bilateral ear pain, congestion, sore throat, runny nose, cough, subjective fever and body aches. Pt went to urgent care on Wednesday and was told she had a bilateral ear infection and was suppose to be given antibiotics but reports they never got called in. Pt reports continued nausea and vomiting for the last several days. On exam, pts TMs are normal. There is mild cerumen in the L canal but otherwise no abnormalities. Pt appears to not feel well. Physical exam is otherwise unremarkable. We will check a Covid and Flu along with labs today. COVID and flu are negative. Labs are unremarkable. No obvious dehydration. We will treat patient for sinusitis given symptoms and duration. Patient is allergic to penicillin so we will do Bactrim. We will also send patient home with Zofran for nausea. We discussed the brat diet. Sinus flushes recommended. Follow-up with PCP in 3 to 5 days if no improvement. Return to the ER with any new or worsening symptoms. Patient verbalized understanding and was in agreement with the treatment plan. Lab Data : 05/08/22 08:27 05/08/22 08:27 Laboratory Results WBC 8.9 10^3/uL (4.0-10.0) 05/08/22 08:27 RBC 4.69 10^6/uL (4.1-5.3) 05/08/22 08:27 Hgb 13.1 g/dL (11.5-15.3) 05/08/22 08:27 Hct 40.3 % (37.0-47.0) 05/08/22 08:27 MCV 85.9 fl (81-99) 05/08/22 08:27 MCH 27.9 pg (28.0-34.0) L 05/08/22 08:27 MCHC 32.5 g/dL (30.0-36.0) 05/08/22 08:27 RDW 13.0 % (12.1-15.1) 05/08/22 08:27 Plt Count 224 10^3/cmm (130-400) 05/08/22 08:27 MPV 11.8 fL (7.4-10.4) H 05/08/22 08:27 Neut % (Auto) 67.8 % 05/08/22 08:27 Lymph % (Auto) 23.5 % 05/08/22 08:27 [place] % (Auto) 5.4 % 05/08/22 08:27 Eos % (Auto) 2.7 % 05/08/22 08:27 Baso % (Auto) 0.4 % 05/08/22 08:27 Neut # (Auto) 6.05 10^3/uL (1.8-7.7) 05/08/22 08:27 Lymph # (Auto) 2.1 10^3/uL (0.8-4.8) 05/08/22 08:27 [place] # (Auto) 0.5 10^3/uL (0.2-0.9) 05/08/22 08:27 Eos # (Auto) 0.2 10^3/uL (0.0-0.8) 05/08/22 08:27 Baso # (Auto) 0.0 10^3/uL (0.0-0.1) 05/08/22 08:27 Nucleated RBC % (auto) 0 % 05/08/22 08:27 Nucleated RBCs # 0.0 /100WBC 05/08/22 08:27 Sodium 137 mmol/L (136-145) 05/08/22 08:27 Potassium 3.5 mmol/L (3.5-5.1) 05/08/22 08:27 Chloride 103 mmol/L (98-107) 05/08/22 08:27 Carbon Dioxide 20 mmol/L (22-29) L 05/08/22 08:27 Anion Gap 17.5 (5-19) 05/08/22 08:27 BUN 7 mg/dL (6-20) 05/08/22 08:27 Creatinine 0.7 mg/dL (0.5-0.9) 05/08/22 08:27 GFR Calculation 103.7 mL/min (90-130) 05/08/22 08:27 Glucose 96 mg/dL (65-115) 05/08/22 08:27 Calculated Osmolality 282 mOsm/kg (285-295) L 05/08/22 08:27 Calcium 9.6 mg/dL (8.5-10.5) 09/23/22 08:27 Influenza Type A Ag Negative (Negative) 05/08/22 08:02 Influenza Type B Ag Negative (Negative) 05/08/22 08:02 SARS-CoV-2 Ag (Rapid) Negative (Negative) 05/08/22 08:02 Critical Care Time Critical Care Time: Critical Care Time: No Discharge Plan Discharge Patient Disposition: Home Clinical Impression: Sinusitis Qualifiers: Sinusitis location: maxillary Chronicity: acute Recurrence: non-recurrent Qualified Code(s): J01.00 - Acute maxillary sinusitis, unspecified Condition: Stable Prescriptions: New Bactrim DS 800-160 mg tablet 1 tab PO BID 10 Days Qty: 20 0RF ondansetron 4 mg tablet,disintegrating 4 mg PO Q8H 3 Days Qty: 9 0RF No Action Amanda 14 mcg/24 hrs (3 yrs) 13.5 mg intrauterine device See Rx Instructions .ROUTE .COMPLEX Label Comments: Placed 12/2017. Rx Instructions: intrauterinely azithromycin 250 mg tablet See Rx Instructions PO .COMPLEX Qty: 6 0RF Rx Instructions: take 500 mg today (day 1), then 250 mg for 4 days (days 2-5) PO albuterol sulfate [ProAir HFA] 90 mcg/actuation HFA aerosol inhaler 2 puff INHALATION Q6H PRN (Reason: shortness of breath or wheezing) Qty: 8.5 1RF Advil 200 mg Tablet 200 mg PO Q6H PRN (Reason: Fever) Tylenol 325 mg Capsule 325 mg PO QID PRN (Reason: Pain) Discharge Orders: Discharge ED (Routine); Ordered 05/08/22 Ordered By: Concha Mena Referrals: Yue Wahl DO [Primary Care Provider] - Discharge Diet: Usual diet Discharge Activity: Resume usual activity Patient Instructions: Opioid Safety, Pain Management Activity Restrictions/Additional Instructions: Take Bactrim as prescribed. Recommend [id number] nasal saline flushes. Alternate Tylenol and Motrin for pain or fevers. Take Zofran as prescribed. [place] diet recommended. Bananas rice applesauce and toast. Sip on clear fluids until improvement in symptoms. Follow-up with PCP in 3 to 5 days if no improvement. Return to the ER with new or worsening symptoms. Coding Level of Care Code ED Physically Impaired Teacher for Hanny Fwpat Exam Comprehensive
[2022-05-08 07:54] VITALS: BP 114/60; PULSE 83; RESP 20; O2SAT 97
[2022-05-08] MEDS: ondansetron 4 MG Tablet PO (08:01)
[2022-05-08 08:33] LABS: Basophils % 0.4 %; Eosinophils # 0.2 10^3/uL (0.0-0.8); Eosinophils % 2.7 %; Hematocrit 40.3 % (37.0-47.0); Hemoglobin 13.1 g/dL (11.5-15.3); Lymphocytes # 2.1 10^3/uL (0.8-4.8); Lymphocytes % 23.5 %; Mean Corpuscular HGB Conc 32.5 g/dL (30.0-36.0); Mean Corpuscular Hemoglobin 27.9 pg (28.0-34.0); Mean Corpuscular Volume 85.9 fl (81-99); Mean Platelet Volume 11.8 fL (7.4-10.4); Monocytes # 0.5 10^3/uL (0.2-0.9); Monocytes % 5.4 %; Neutrophils # 6.05 10^3/uL (1.8-7.7); Neutrophils % 67.8 %; Nucleated Red Blood Cells % 0 %; Platelet Count 224 10^3/cmm (130-400); Red Blood Count 4.69 10^6/uL (4.1-5.3); White Blood Count 8.9 10^3/uL (4.0-10.0)
[2022-05-08 08:47] LABS: Influenza A by IFA Negative (Negative)
[2022-05-08 08:48] LABS: Influenza B by IFA Negative (Negative); SARS Covid-2 Antigen Negative (Negative)
[2022-05-08 08:55] LABS: Anion Gap 17.5 (5-19); Blood Urea Nitrogen 7 mg/dL (6-20); Calcium 9.6 mg/dL (8.5-10.5); Carbon Dioxide 20 mmol/L (22-29); Chloride 103 mmol/L (98-107); Glomerular Filtration Rate 103.7 mL/min (90-130); Glucose 96 mg/dL (65-115); Osmolality Calculated 282 mOsm/kg (285-295); Potassium 3.5 mmol/L (3.5-5.1); Sodium 137 mmol/L (136-145)
[2022-05-08 09:10] VITALS: BP 104/70; PULSE 80; RESP 18; O2SAT 97
== END 2022-05-08 09:16 | disposition home or self-care (01) ==
PROVIDERS: Emergency Provider Physician Assistant; PCP Family Medicine
DX: J01.00 Acute maxillary sinusitis, unspecified (principal); F17.200 Nicotine dependence, unspecified, uncomplicated
CPT/HCPCS: 80048; 85025; 87426; 87804; 99283; Q0162

== ENCOUNTER 2022-06-20 18:10 | Emergency (ER) | payer OTHER, SELFPAY ==
[2022-06-20 18:45] VITALS: BMI 30.2
[2022-06-20 18:47] VITALS: BP 102/72; PULSE 86; RESP 18; TEMP 36.8; O2SAT 98
--- NOTE | 2022-06-20 18:49 | W.ED.NAVMDI ---
HPI - Nausea/Vomiting/Diarrhea General: Chief complaint: Nausea/Vomiting/Diarrhea Stated complaint: Vomiting Time Seen by Provider: 06/20/22 18:49 History of Present Illness: 22-year-old female comes in today with complaints of nausea and vomiting for the last 2 days. Patient reports feeling nauseous and having episodes of vomiting since Wednesday. Patient reports symptoms were worse over the last 2 days. Patient denies . Patient has a history of anxiety depression, migraine headaches, IUD placement. Associated nausea: Yes Associated symtoms: Reports nausea Review of Systems Const: Denies: fever(s) GI: Reports: nausea and vomiting [facility] ED PFSH: Medical History Anxiety Asthma Depression History of 2019 novel coronavirus disease (COVID-19) Migraine without aura No pertinent past medical history neghx: htn,dm,thyroid,dvt/pe PCP: Dr. Wahl Surgical History History of laparoscopic cholecystectomy (~07/2017) History of tonsillectomy Status post myringotomy with insertion of tube Family History Grandmother Cancer Stroke Maternal Grandfather Diabetes Maternal Cancer Hypertension Maternal Mother Psychiatric illness Depression and anxiety Diabetes Hypertension Sister Psychiatric illness Depression and anxiety Thyroid disease Denies family history of Colon cancer Ovarian cancer Hypercholesteremia Breast cancer Uterine cancer Social History Smoking and tobacco status: current every day smoker Other details last substance use: Denies drug use Female Reproductive History: Date of last menstrual period: 04/25/21 Physical Exam Const: COMMON NORMALS: alert HENMT: COMMON NORMALS: normocephalic HEAD & SCALP: normocephalic Resp: COMMON NORMALS: normal respiratory effort and clear to auscultation bilaterally AUSCULTATION: clear to auscultation bilaterally Cardio: COMMON NORMALS: regular rate and regular rhythm RATE: regular rate RHYTHM: regular rhythm GI: COMMON NORMALS: Soft to palpation AUSCULTATION: Yes normoactive bowel sounds PALPATION: Yes Soft to palpation and No Tenderness to palpation present (GI) : COMMON NORMALS: Yes no CVA tenderness BLADDER/KIDNEY EXAM: Yes no CVA tenderness Back/Pelvis: COMMON NORMALS: no CVA tenderness Extremity: COMMON NORMALS: normal to inspection Neuro: SENSORIUM/ORIENTATION: Yes alert Skin: COMMON NORMALS: turgor normal GENERAL SKIN EXAM: turgor normal Course Vital Signs: Vital signs: Vital Signs Temperature 98.3 F 06/20/22 18:47 Pulse Rate 72 06/20/22 23:08 Respiratory Rate 16 06/20/22 23:08 Blood Pressure 97/65 06/20/22 23:08 Pulse Oximetry 95 06/20/22 23:08 Oxygen Delivery Me thod 06/20/22 20:26 MDM - Nausea/Vomiting/Diarrhea Medical Decision Making Patient comes in today for complaints of nausea and vomiting for the last 5 days. On exam patient had persistent emesis. Abdomen is soft with minimal tenderness in epigastrium. Patient moves all extremities well. Vital signs were normal. Differential diagnosis includes but not limited to dehydration, gastroenteritis, appendicitis, sepsis, urinary tract infection. CBC had a white count of 10,000, CMP had a sodium 130, potassium 3.4, creatinine 0.9, urinalysis unremarkable. Patient was hydrated with 2 L of IV fluids and given Zofran and Reglan for nausea. Patient was able to tolerate oral fluids and felt much improved. Patient was allowed to go home with instructions to return for high fever, blood in vomit or stool, or continued inability to hold fluids down. Lab Data : 06/20/22 19:10 06/20/22 19:10 Laboratory Results WBC 10.6 10^3/uL (4.0-10.0) H 06/20/22 19:10 RBC 4.81 10^6/uL (4.1-5.3) 06/20/22 19:10 Hgb 13.6 g/dL (11.5-15.3) 06/20/22 19:10 Hct 40.0 % (37.0-47.0) 06/20/22 19:10 MCV 83.2 fl (81-99) 06/20/22 19:10 MCH 28.3 pg (28.0-34.0) 06/20/22 19:10 MCHC 34.0 g/dL (30.0-36.0) 06/20/22 19:10 RDW 13.2 % (12.1-15.1) 06/20/22 19:10 Plt Count 242 10^3/cmm (130-400) 06/20/22 19:10 MPV 11.6 fL (7.4-10.4) H 06/20/22 19:10 Neut % (Auto) 81.6 % 06/20/22 19:10 Lymph % (Auto) 11.1 % 06/20/22 19:10 [place] % (Auto) 6.5 % 06/20/22 19:10 Eos % (Auto) 0.1 % 06/20/22 19:10 Baso % (Auto) 0.3 % 06/20/22 19:10 Neut # (Auto) 8.64 10^3/uL (1.8-7.7) H 06/20/22 19:10 Lymph # (Auto) 1.2 10^3/uL (0.8-4.8) 06/20/22 19:10 [place] # (Auto) 0.7 10^3/uL (0.2-0.9) 06/20/22 19:10 Eos # (Auto) 0.0 10^3/uL (0.0-0.8) 06/20/22 19:10 Baso # (Auto) 0.0 10^3/uL (0.0-0.1) 06/20/22 19:10 Nucleated RBC % (auto) 0 % 06/20/22 19:10 Nucleated RBCs # 0.0 /100WBC 06/20/22 19:10 Sodium 130 mmol/L (136-145) L 06/20/22 19:10 Potassium 3.4 mmol/L (3.5-5.1) L 06/20/22 19:10 Chloride 97 mmol/L (98-107) L 06/20/22 19:10 Carbon Dioxide 18 mmol/L (22-29) L 06/20/22 19:10 Anion Gap 18.4 (5-19) 06/20/22 19:10 BUN 10 mg/dL (6-20) 06/20/22 19:10 Creatinine 0.9 mg/dL (0.5-0.9) 06/20/22 19:10 GFR Calculation 76.9 mL/min (90-130) L 06/20/22 19:10 Glucose 116 mg/dL (65-115) H 06/20/22 19:10 Calculated Osmolality 270 mOsm/kg (285-295) L 06/20/22 19:10 Calcium 10.0 mg/dL (8.5-10.5) 06/20/22 19:10 Total Bilirubin 0.6 mg/dL (0.15-1.2) 06/20/22 19:10 AST 12 U/L (0-32) 06/20/22 19:10 ALT 9 U/L (0-33) 06/20/22 19:10 Alkaline Phosphatase 94 U/L (35-105) 06/20/22 19:10 Total Protein 8.4 g/dL (6.6-8.7) 06/20/22 19:10 Albumin 4.8 g/dL (3.5-5.2) 06/20/22 19:10 Globulin 3.6 g/dL (1.3-4.6) 06/20/22 19:10 Lipase 21 U/L (13-60) 06/20/22 19:10 HCG, Qual Negative (Negative) 06/20/22 19:10 Urine Color Yellow (Yellow) 06/20/22 21:10 Urine Appearance Clear (CLEAR) 06/20/22 21:10 Urine pH 7 (5-7) 06/20/22 21:10 Ur Specific [place] 1.005 (1.005-1.030) 06/20/22 21:10 Urine Protein Neg (Negative) 06/20/22 21:10 Urine Glucose (UA) Norm (Normal) 06/20/22 21:10 Urine Ketones Negative (Negative) 06/20/22 21:10 Urine Blood 3+ (Negative) H 06/20/22 21:10 Urine Nitrate Negative (Negative) 06/20/22 21:10 Urine Bilirubin Neg (Negative) 06/20/22 21:10 Urine Urobilinogen Norm mg/dL (Negative) 06/20/22 21:10 Ur Leukocyte Esterase Negative (Negative) 06/20/22 21:10 Urine RBC 5-10 /hpf (0-2) H 06/20/22 21:10 Urine WBC 0-4 /hpf (0-5) H 06/20/22 21:10 Ur Squamous Epith Cells None /hpf (0-5) 06/20/22 21:10 Amorphous Sediment Not Reportable 06/20/22 21:10 Urine Bacteria None /hpf (NONE) 06/20/22 21:10 Discharge Plan Discharge Patient Disposition: Home Clinical Impression: Gastroenteritis, Dehydration Condition: Stable Prescriptions: New metoclopramide HCl 10 mg tablet 10 mg PO Q6H PRN (Reason: nausea and vomiting) Qty: 14 0RF ondansetron 4 mg tablet,disintegrating 4 mg PO Q8H PRN (Reason: nausea and vomiting) Qty: 7 0RF No Action Amanda 14 mcg/24 hrs (3 yrs) 13.5 mg intrauterine device See Rx Instructions .ROUTE .COMPLEX Label Comments: Placed 12/2017. Rx Instructions: intrauterinely azithromycin 250 mg tablet See Rx Instructions PO .COMPLEX Qty: 6 0RF Rx Instructions: take 500 mg today (day 1), then 250 mg for 4 days (days 2-5) PO albuterol sulfate [ProAir HFA] 90 mcg/actuation HFA aerosol inhaler 2 puff INHALATION Q6H PRN (Reason: shortness of breath or wheezing) Qty: 8.5 1RF Advil 200 mg Tablet 200 mg PO Q6H PRN (Reason: Fever) Tylenol 325 mg Capsule 325 mg PO QID PRN (Reason: Pain) Discharge Orders: Discharge ED (Routine); Ordered 06/20/22 Ordered By: Marky Sun Referrals: Yue Wahl DO [Primary Care Provider] - Discharge Diet: Advance as tolerated Discharge Activity: Increase activity as tolerated Patient Instructions: Dehydration (ED) Activity Restrictions/Additional Instructions: Encourage plenty of fluids. Use Reglan, metoclopramide, 1 tablet every 6 hours to control nausea and vomiting. Use ondansetron 4 mg every 8 hours as needed for breakthrough nausea or vomiting. Make sure to use electrolyte solutions like Pedialyte or Gatorade to maintain electrolytes. Try to drink sips of fluids frequently to avoid dehydration. Return to ED for fever greater than 100.4, blood in vomit or stool, or new concerns. Coding Level of Care Code ED [employer] Plant Attendant for Hanny Fwd Exam Comprehensive
[2022-06-20 19:30] LABS: Basophils % 0.3 %; Eosinophils % 0.1 %; Hemoglobin 13.6 g/dL (11.5-15.3); Lymphocytes # 1.2 10^3/uL (0.8-4.8); Lymphocytes % 11.1 %; Mean Corpuscular Hemoglobin 28.3 pg (28.0-34.0); Mean Corpuscular Volume 83.2 fl (81-99); Mean Platelet Volume 11.6 fL (7.4-10.4); Monocytes # 0.7 10^3/uL (0.2-0.9); Monocytes % 6.5 %; Neutrophils # 8.64 10^3/uL (1.8-7.7); Neutrophils % 81.6 %; Nucleated Red Blood Cells % 0 %; Platelet Count 242 10^3/cmm (130-400); Red Blood Count 4.81 10^6/uL (4.1-5.3); Red Cell Distribution Width 13.2 % (12.1-15.1); White Blood Count 10.6 10^3/uL (4.0-10.0)
[2022-06-20] MEDS: lactated ringers 1,000 ML 999 ML IV (19:30)
[2022-06-20] MEDS: ondansetron 2 mg/ML SDV 2 mL 4 MG IVP (19:30)
[2022-06-20 19:49] LABS: Alanine Aminotransferase 9 U/L (0-33); Albumin Level 4.8 g/dL (3.5-5.2); Alkaline Phosphatase 94 U/L (35-105); Anion Gap 18.4 (5-19); Aspartate Amino Transferase 12 U/L (0-32); Blood Urea Nitrogen 10 mg/dL (6-20); Carbon Dioxide 18 mmol/L (22-29); Chloride 97 mmol/L (98-107); Globulin 3.6 g/dL (1.3-4.6); Glomerular Filtration Rate 76.9 mL/min (90-130); Glucose 116 mg/dL (65-115); Lipase 21 U/L (13-60); Osmolality Calculated 270 mOsm/kg (285-295); Potassium 3.4 mmol/L (3.5-5.1); Sodium 130 mmol/L (136-145); Total Bilirubin 0.6 mg/dL (0.15-1.2); Total Protein 8.4 g/dL (6.6-8.7)
[2022-06-20 19:57] LABS: HCG, Serum Qual Negative (Negative)
[2022-06-20] MEDS: sodium chloride 0.9% 1,000 ML 999 ML IV (20:12)
[2022-06-20 20:26] VITALS: BP 103/58; PULSE 75; RESP 16; O2SAT 98
[2022-06-20] MEDS: metoclopramide 5 mg/mL SDV 2 mL 10 MG IVP (20:50)
--- NOTE | 2022-06-20 21:15 | PC.NURSE ---
Patient provided ice chips and jello. States feels much better after fluids and medications.
[2022-06-20 22:54] LABS: Add Urine Microscopic? YES; Bilirubin Urine Neg (Negative); Blood Urine 3+ (Negative); Glucose Urine UA Norm (Normal); Ketones Urine Negative (Negative); Leukocyte Esterase Urine Negative (Negative); Nitrate Urine Negative (Negative); Protein Urine Neg (Negative); Specific Gravity, Urine 1.005 (1.005-1.030); Urine Appearance Clear (CLEAR); Urine Color Yellow (Yellow); Urobilinogen Urine Norm (Negative); pH Urine 7 (5-7)
[2022-06-20 22:55] LABS: WBC Urine 0-4 /hpf (0-5)
[2022-06-20 22:56] LABS: Add Urine Culture? No
[2022-06-20 23:08] VITALS: BP 97/65; PULSE 72; RESP 16; O2SAT 95
== END 2022-06-20 23:10 | disposition home or self-care (01) ==
PROVIDERS: Emergency Provider Nurse Practitioner Family; PCP Family Medicine
DX: K52.9 Noninfective gastroenteritis and colitis, unspecified (principal); E86.0 Dehydration; F17.200 Nicotine dependence, unspecified, uncomplicated
CPT/HCPCS: 80053; 81001; 83690; 84703; 85025; 96361; 96374; 96375; 99284; J2405; J2765; J7030; J7120

== ENCOUNTER 2022-12-09 06:25 | Emergency (ER) | payer OTHER, SELFPAY ==
[2022-12-09 06:29] VITALS: RESP 24; TEMP 36.6; BMI 30.1
--- NOTE | 2022-12-09 06:39 | ED_ITS ---
HPI - Nausea/Vomiting/Diarrhea General: Chief complaint: Nausea/Vomiting/Diarrhea Stated complaint: N/V abd pain Time Seen by Provider: 12/09/22 06:38 History of Present Illness: Patient presents to the ER with complaints of nausea vomiting and diarrhea has not sought stop since 2:00 this morning. Patient says that she ate some bad pork last night and this may be causing her symptoms. Patient normally does not have any nausea vomiting diarrhea. MD elicited complaint: nausea, vomiting and diarrhea Onset (ago): hour(s) (Proximately 5 hours ago) Description of vomiting: watery Description of diarrhea: watery Associated nausea: Yes Location of pain: None Exacerbating factors: none Relieving factors: none Context: possible food poisoning Associated symtoms: Reports nausea; Denies change in vision, chest pain or palpitations Review of Systems General: Reports: 10 or more systems reviewed and unremarkable except in HPI a nd below Const: Denies: fever(s) or chills Eyes: Denies: change in vision ENMT: Denies: throat pain or odynophagia Card: Denies: chest pain or palpitations Resp: Denies: dyspnea, productive cough or non-productive cough GI: Reports: nausea, vomiting and diarrhea; Denies: abdominal pain PFSH ED PFSH: Medical History Anxiety Asthma Depression History of 2019 novel coronavirus disease (COVID-19) Migraine without aura No pertinent past medical history neghx: htn,dm,thyroid,dvt/pe PCP: Dr. Wahl Surgical History History of laparoscopic cholecystectomy (~07/2017) History of tonsillectomy Status post myringotomy with insertion of tube Family History Grandmother Cancer Stroke Maternal Grandfather Diabetes Maternal Cancer Hypertension Maternal Mother Psychiatric illness Depression and anxiety Diabetes Hypertension Sister Psychiatric illness Depression and anxiety Thyroid disease Denies family history of Colon cancer Ovarian cancer Hypercholesteremia Breast cancer Uterine cancer Social History Smoking and tobacco status: current every day smoker Substance/Drug Use: never Other details last substance use: Denies drug use Female Reproductive History: Date of last menstrual period: 12/08/22 Physical Exam Const: COMMON NORMALS: no acute distress, average body habitus, patient oriented x3, no limitations, healthy appearing and alert OTHER: Actively vomiting and dry heaving HENMT: COMMON NORMALS: normocephalic, atraumatic, hearing grossly normal bilaterally, external ears normal, Normal external nose present and moist oral mucous membranes HEAD & SCALP: normocephalic and atraumatic NOSE: Normal external nose present EXTERNAL EAR: Yes external ears normal Eye: COMMON NORMALS: Equal, round and reactive pupils present, EOMs intact bilaterally, conjunctivae normal and no scleral icterus CONJUNCTIVA: Yes conjunctivae normal PUPIL: Yes Equal, round and reactive pupils present Neck/C-Spine: COMMON NORMALS: full ROM, no lymphadenopathy, supple, no meningeal signs, no JVD and Thyroid normal THYROID: Thyroid normal Chest: COMMONS NORMALS: normal inspection of the chest and normal palpation of entire chest wall Resp: COMMON NORMALS: normal respiratory effort, No retractions, No use of accessory muscles and clear to auscultation bilaterally AUSCULTATION: clear to auscultation bilaterally Cardio: COMMON NORMALS: no JVD GI: COMMON NORMALS: Normal to inspection, nondistended, normoactive bowel sounds present, Soft to palpation, non-tender, No hepatosplenomegaly present and no masses PALPATION: Yes Soft to palpation and Yes No hepatosplenomegaly present : COMMON NORMALS: Yes no CVA tenderness BLADDER/KIDNEY EXAM: Yes no CVA tenderness Back/Pelvis: COMMON NORMALS: no CVA tenderness Extremity: COMMON NORMALS: normal to inspection Neuro: COMMON NORMALS: patient oriented x3 SENSORIUM/ORIENTATION: Yes alert MENINGEAL SIGNS: Yes no meningeal signs Course Vital Signs: Vital signs: Vital Signs Temperature 97.8 F 12/09/22 06:46 Pulse Rate 110 H 12/09/22 08:30 Respiratory Rate 16 12/09/22 06:46 Blood Pressure 103/68 12/09/22 08:30 Pulse Oximetry 97 12/09/22 08:30 Oxygen Delivery Me thod Room Air 12/09/22 06:46 MDM - Nausea/Vomiting/Diarrhea Medical Decision Making Patient presents to the ER with severe nausea vomiting. Patient says she ate some funny tasting pork chops last night and this started 2:00 this morning. Patient was given Zofran and Reglan and IV bolus of normal saline. Lab work was obtained which was essentially benign except for a white count of 15.7 which may be due to the stress of vomiting. Patient was able to sip on water and eat ice chips with no problem after the given medicine. Patient be discharged home Differential Diagnosis Likely food poisoning and gastroenteritis; Unlikely traveler's diarrhea, clostridium difficile infection, drug-induced nausea and vomiting or dehydration Medical Records I reviewed the patient's medical records. Lab Data 12/09/22 06:45 12/09/22 06:45 Laboratory Results WBC 15.7 10^3/uL (4.0-10.0) H 12/09/22 06:45 RBC 5.51 10^6/uL (4.1-5.3) H 12/09/22 06:45 Hgb 15.1 g/dL (11.5-15.3) 12/09/22 06:45 Hct 45.5 % (37.0-47.0) 12/09/22 06:45 MCV 82.6 fl (81-99) 12/09/22 06:45 MCH 27.4 pg (28.0-34.0) L 12/09/22 06:45 MCHC 33.2 g/dL (30.0-36.0) 12/09/22 06:45 RDW 13.1 % (12.1-15.1) 12/09/22 06:45 Plt Count 364 10^3/cmm (130-400) 12/09/22 06:45 MPV 11.4 fL (7.4-10.4) H 12/09/22 06:45 Neut % (Auto) 81.6 % 12/09/22 06:45 Lymph % (Auto) 12.4 % 12/09/22 06:45 [place] % (Auto) 4.7 % 12/09/22 06:45 Eos % (Auto) 0.6 % 12/09/22 06:45 Baso % (Auto) 0.3 % 12/09/22 06:45 Neut # (Auto) 12.81 10^3/uL (1.8-7.7) H 12/09/22 06:45 Lymph # (Auto) 2.0 10^3/uL (0.8-4.8) 12/09/22 06:45 [place] # (Auto) 0.7 10^3/uL (0.2-0.9) 12/09/22 06:45 Eos # (Auto) 0.1 10^3/uL (0.0-0.8) 12/09/22 06:45 Baso # (Auto) 0.1 10^3/uL (0.0-0.1) 12/09/22 06:45 Nucleated RBC % (auto) 0 % 12/09/22 06:45 Nucleated RBCs # 0.0 /100WBC 12/09/22 06:45 Sodium 138 mmol/L (136-145) 12/09/22 06:45 Potassium 3.9 mmol/L (3.5-5.1) 12/09/22 06:45 Chloride 102 mmol/L (98-107) 12/09/22 06:45 Carbon Dioxide 15 mmol/L (22-29) L 12/09/22 06:45 Anion Gap 24.9 (5-19) H 12/09/22 06:45 BUN 9 mg/dL (6-20) 12/09/22 06:45 Creatinine 0.8 mg/dL (0.5-0.9) 12/09/22 06:45 GFR Calculation 88.1 mL/min (90-130) L 12/09/22 06:45 Glucose 135 mg/dL (65-115) H 12/09/22 06:45 Calculated Osmolality 287 mOsm/kg (285-295) 12/09/22 06:45 Calcium 10.1 mg/dL (8.5-10.5) 12/09/22 06:45 Magnesium 1.8 mg/dL (1.7-2.3) 12/09/22 06:45 Total Bilirubin 0.4 mg/dL (0.15-1.2) 12/09/22 06:45 AST 15 U/L (0-32) 12/09/22 06:45 ALT 12 U/L (0-33) 12/09/22 06:45 Alkaline Phosphatase 95 U/L (35-105) 12/09/22 06:45 Total Protein 8.5 g/dL (6.6-8.7) 12/09/22 06:45 Albumin 4.7 g/dL (3.5-5.2) 12/09/22 06:45 Globulin 3.8 g/dL (1.3-4.6) 12/09/22 06:45 Lipase 25 U/L (13-60) 12/09/22 06:45 HCG, Qual Negative (Negative) 12/09/22 06:45 Discharge Plan Discharge Patient Disposition: Home Clinical Impression: Food poisoning Condition: Stable Prescriptions: No Action Amanda 14 mcg/24 hrs (3 yrs) 13.5 mg intrauterine device See Rx Instructions .ROUTE .COMPLEX Patient Comments: Placed 12/2017. Rx Instructions: intrauterinely azithromycin 250 mg tablet See Rx Instructions PO .COMPLEX Qty: 6 0RF Rx Instructions: take 500 mg today (day 1), then 250 mg for 4 days (days 2-5) PO albuterol sulfate [ProAir HFA] 90 mcg/actuation HFA aerosol inhaler 2 puff INHALATION Q6H PRN (Reason: shortness of breath or wheezing) Qty: 8.5 1RF Advil 200 mg Tablet 200 mg PO Q6H PRN (Reason: Fever) Tylenol 325 mg Capsule 325 mg PO QID PRN (Reason: Pain) metoclopramide HCl 10 mg tablet 10 mg PO Q6H PRN (Reason: nausea and vomiting) Qty: 14 0RF ondansetron 4 mg tablet,disintegrating 4 mg PO Q8H PRN (Reason: nausea and vomiting) Qty: 7 0RF Discharge Orders: Discharge ED (Routine); Ordered 12/09/22 Ordered By: Weston Gordon Referrals: Yue Wahl DO [Primary Care Provider] - 1 week Patient Instructions: Food Poisoning (ED) Coding Level of Care Code ED Certified Juvenile Probation Officer for Hanny Curry
[2022-12-09 06:46] VITALS: BP 101/62; PULSE 94; RESP 16; TEMP 36.6; O2SAT 100
[2022-12-09 07:03] VITALS: BP 110/57; PULSE 67; O2SAT 98
[2022-12-09] MEDS: metoclopramide 5 mg/mL SDV 2 mL 10 MG IVP (07:03)
[2022-12-09] MEDS: ondansetron 2 mg/ML SDV 2 mL 8 MG IVP (07:03)
[2022-12-09] MEDS: sodium chloride 0.9% 1,000 ML 999 ML IV (07:14)
[2022-12-09 07:24] LABS: Basophils # 0.1 10^3/uL (0.0-0.1); Basophils % 0.3 %; Eosinophils # 0.1 10^3/uL (0.0-0.8); Eosinophils % 0.6 %; Hematocrit 45.5 % (37.0-47.0); Hemoglobin 15.1 g/dL (11.5-15.3); Lymphocytes % 12.4 %; Mean Corpuscular HGB Conc 33.2 g/dL (30.0-36.0); Mean Corpuscular Hemoglobin 27.4 pg (28.0-34.0); Mean Corpuscular Volume 82.6 fl (81-99); Mean Platelet Volume 11.4 fL (7.4-10.4); Monocytes # 0.7 10^3/uL (0.2-0.9); Monocytes % 4.7 %; Neutrophils # 12.81 10^3/uL (1.8-7.7); Neutrophils % 81.6 %; Nucleated Red Blood Cells % 0 %; Platelet Count 364 10^3/cmm (130-400); Red Blood Count 5.51 10^6/uL (4.1-5.3); Red Cell Distribution Width 13.1 % (12.1-15.1); White Blood Count 15.7 10^3/uL (4.0-10.0)
[2022-12-09 07:36] LABS: HCG, Serum Qual Negative (Negative)
[2022-12-09 07:46] LABS: Alanine Aminotransferase 12 U/L (0-33); Albumin Level 4.7 g/dL (3.5-5.2); Alkaline Phosphatase 95 U/L (35-105); Anion Gap 24.9 (5-19); Aspartate Amino Transferase 15 U/L (0-32); Blood Urea Nitrogen 9 mg/dL (6-20); Calcium 10.1 mg/dL (8.5-10.5); Carbon Dioxide 15 mmol/L (22-29); Chloride 102 mmol/L (98-107); Globulin 3.8 g/dL (1.3-4.6); Glomerular Filtration Rate 88.1 mL/min (90-130); Glucose 135 mg/dL (65-115); Lipase 25 U/L (13-60); Magnesium 1.8 mg/dL (1.7-2.3); Osmolality Calculated 287 mOsm/kg (285-295); Potassium 3.9 mmol/L (3.5-5.1); Sodium 138 mmol/L (136-145); Total Bilirubin 0.4 mg/dL (0.15-1.2); Total Protein 8.5 g/dL (6.6-8.7)
[2022-12-09 08:30] VITALS: BP 103/68; PULSE 110; O2SAT 97
[2022-12-09 09:52] VITALS: PULSE 93; O2SAT 99
== END 2022-12-09 09:45 | disposition home or self-care (01) ==
PROVIDERS: Emergency Provider Emergency Medicine; PCP Family Medicine
DX: A05.9 Bacterial foodborne intoxication, unspecified (principal); F17.210 Nicotine dependence, cigarettes, uncomplicated
CPT/HCPCS: 36415; 80053; 83690; 83735; 84703; 85025; 96374; 96375; 99284; J2405; J2765; J7030

== ENCOUNTER → 2023-05-27 18:05 | Outpatient (BNVA) | payer OTHER, SELFPAY | PROVIDERS: PCP Family Medicine; Visit Provider Emergency Medicine | DX: R50.9 Fever, unspecified (principal); A08.4 Viral intestinal infection, unspecified; R11.2 Nausea with vomiting, unspecified | CPT/HCPCS: 87400 ==

== ENCOUNTER → 2023-09-05 11:51 | Outpatient (BNVA) | payer OTHER, SELFPAY | PROVIDERS: PCP Family Medicine; Visit Provider Emergency Medicine | DX: M12.571 Traumatic arthropathy, right ankle and foot (principal); S90.31XA Contusion of right foot, initial encounter; X58.XXXA Exposure to other specified factors, initial encounter | CPT/HCPCS: 73630 ==

== ENCOUNTER → 2023-10-07 18:52 | Outpatient (BNVA) | payer OTHER, SELFPAY | PROVIDERS: PCP Family Medicine; Visit Provider Nurse Practitioner | DX: R39.9 Unspecified symptoms and signs involving the genitourinary system (principal) | CPT/HCPCS: 81000 ==

== ENCOUNTER → 2024-03-22 11:46 | Outpatient (BNVA) | payer OTHER, SELFPAY | PROVIDERS: Visit Provider Nurse Practitioner Women's Health | DX: N94.10 Unspecified dyspareunia (principal) | CPT/HCPCS: 84315; 87086 ==

== ENCOUNTER → 2024-03-27 08:30 | Outpatient (BNVA) | payer OTHER, SELFPAY | PROVIDERS: Visit Provider Nurse Practitioner Women's Health | DX: Z30.431 Encounter for routine checking of intrauterine contraceptive device (principal); R30.0 Dysuria | CPT/HCPCS: 81025; 84315 ==

== ENCOUNTER → 2024-04-20 15:17 | Outpatient (BNVA) | payer OTHER, SELFPAY | PROVIDERS: Visit Provider Nurse Practitioner Women's Health | DX: Z30.9 Encounter for contraceptive management, unspecified (principal); T83.32XA Displacement of intrauterine contraceptive device, initial encounter; N83.8 Other noninflammatory disorders of ovary, fallopian tube and broad ligament | CPT/HCPCS: 76830 ==

== ENCOUNTER 2024-05-04 07:27 | Day surgery (SDC) | payer OTHER, SELFPAY ==
[2024-05-04] VITALS (13 sets, daily range): BP systolic 93–134; BP diastolic 58–91; PULSE 41–91; RESP 14–18; TEMP 36.3–36.6; O2SAT 93–100; BMI 31.8
--- NOTE | 2024-05-04 05:26 | W.PM.OPSFHP ---
Same Day Surgery H&P Indication for Procedure/HPI DATE OF PROCEDURE: May 04, 2024 CHIEF COMPLAINT/INDICATIONFOR SURGICAL PROCEDURE: intrauterine device with lost strings, for removal desires new intrauterine device PREOP DIAGNOSIS: intrauterine device with lost strings, for removal;desires new intrauterine PLANNED PROCEDURE: Operation Date: 05/04/24 10:10 Proposed Procedures p Hysteroscopy 85540, 19519, 54969, T83.32xa(Not Applicable) - David Brown MD s Removal Of Interuterine Device(Not Applicable) - David Brown MD s Placement of Intrauterine Device(Not Applicable) - David Brown MD Medications/Allergies* Home Medications Medication Instructions Recorded Confirmed Type acetaminophen 325 mg capsule 325 mg PO QID PRN Pain 05/08/22 05/03/24 History (Tylenol) ibuprofen 200 mg tablet (Advil) 200 mg PO Q6H PRN Fever 05/08/22 05/03/24 History levonorgestrel 14 mcg/24 hr (up to 14 mcg intrauterine DIRECTED 04/26/24 05/03/24 History 3 yrs) 13.5 mg intrauterine device (Amanda) Allergies/Adverse Reactions Allergy/AdvReac Type Severity Reaction Status Date / Time morphine Allergy ADR-Nausea Verified 04/26/24 14:59 Penicillins Allergy ALGY-Hives Verified 04/26/24 14:59 sumatriptan [From Imitrex] AdvReac Mild chest Verified 04/26/24 14:59 tightness / burning in head Pertinent History/Comorbid Conditions* Medical History (Updated 03/27/24 @ 09:05 by Janet Angelo NP) No pertinent past medical history neghx: htn,dm,thyroid,dvt/pe PCP: Dr. Wahl History of 2019 novel coronavirus disease (COVID-19) Migraine without aura Anxiety Depression Asthma Surgical History (Updated 03/01/20 @ 07:37 by Garland Guerra MD) Status post myringotomy with insertion of tube History of tonsillectomy History of laparoscopic cholecystectomy (~07/2017) Family History (Updated 02/11/21 @ 11:50 by Hamida Richards) Diabetes Grandfather Maternal Mother Psychiatric illness Mother Depression and anxiety Sister Depression and anxiety Cancer Grandmother Grandfather Hypertension Grandfather Maternal Mother Thyroid disease Sister Stroke Grandmother Maternal Denies family history of Colon cancer Ovarian cancer Hypercholesteremia Breast cancer Uterine cancer Social History Smoking and tobacco/nicotine status: never used tobacco/nicotine Substance/Drug Use: never Pertinent Exam Findings alert, oriented x 3, clear to auscultation bilaterally and regular rate & rhythm Recommendations Surgery/Procedure today Coding Level of Care Code Acute Code for Chg Fwd Time Spent (min) 20
[2024-05-04 08:20] LABS: OR HCG Qualitative Urine Negative (Negative)
[2024-05-04] MEDS: sodium chloride 0.9% 1,000 ML 30 ML IV (08:40)
[2024-05-04] MEDS: ondansetron 2 mg/ML SDV 2 mL 4 MG IVP (08:56)
[2024-05-04] MEDS: scopolamine 1.5 Patch 1 PATCH TRANSDERMA (08:56)
--- NOTE | 2024-05-04 09:15 | W.PM.OPSUD ---
Surgery/Procedure H&P Update DATE OF PROCEDURE: May 04, 2024 DATE H&P PERFORMED: 05/04/24 H&P UPDATE INFORMATION: I have reviewed H&P completed within last 30 days, I have examined patient prior to procedure and No changes to prior documentation PREOP DIAGNOSIS: intrauterine device with lost strings; wants new intrauterine device PLANNED PROCEDURE: Operation Date: 05/04/24 10:10 Proposed Procedures p Hysteroscopy 79806, 39578, 73552, T83.32xa(Not Applicable) - David Brown MD s Removal Of Interuterine Device(Not Applicable) - David Brown MD s Placement of Intrauterine Device(Not Applicable) - David Brown MD
--- NOTE | 2024-05-04 09:37 | ANES.PREANE2 ---
Pre-Anesthetic Assessment Height/Weight: Height 5 ft 3 in Weight 180 lb Temp Pulse Resp BP Pulse Ox O2 Del Method 97.5 F L 75 16 115/91 98 Room Air 05/04/24 08:08 05/04/24 08:08 05/04/24 08:08 05/04/24 08:08 05/04/24 08:08 05/04/24 08:15 Preop Diagnosis: intrauterine device with lost strings; wants new intrauterine device Operation Date: 05/04/24 10:10 Proposed Procedures p Hysteroscopy 97197, 30562, 38159, T83.32xa(Not Applicable) - David Brown MD s Removal Of Interuterine Device(Not Applicable) - David Brown MD s Placement of Intrauterine Device(Not Applicable) - David Brown MD Was Beta [place] taken within 24 hours: N/A Was Clonidine taken within 24 hours: N/A Last intake: Intake Last Liquid Date 05/03/24 Last Liquid Time 22:30 Last Solid Date 05/03/24 Last Solid Time 22:30 Social No alcohol Smokes marijuana Exam alert, oriented x 3, clear to auscultation bilaterally and regular rate & rhythm Airway Submandibular: within normal limits Cervical ROM: within normal limits Mallampati: Class II Dentition: other (Very poor dentition) Anesthetic Plan ASA status: 2 Anesthesia: General Other: No prior issues with anesthesia NPO since midnight Denies any cardiac issues Smokes occasional marijuana METs greater than 4 Poor dentition, denies any loose teeth Plan for general anesthesia with LMA Medications/Allergies Home Medications Medication Instructions Recorded Confirmed Last Taken Type albuterol sulfate 90 mcg/actuation 2 puff inhalation Q6H PRN 05/09/21 05/03/24 Unknown Rx aerosol inhaler (ProAir HFA) shortness of breath or wheezing #8.5 grams acetaminophen 325 mg capsule 325 mg PO QID PRN Pain 05/08/22 05/03/24 05/07/22 History (Tylenol) ibuprofen 200 mg tablet (Advil) 200 mg PO Q6H PRN Fever 05/08/22 05/03/24 05/07/22 History ondansetron 8 mg disintegrating 8 mg PO Q8H PRN nausea and 02/01/24 05/03/24 Unknown Rx tablet vomiting 5 days #30 tabs levonorgestrel 14 mcg/24 hr (up to 14 mcg intrauterine DIRECTED 04/26/24 05/03/24 12/16/20 History 3 yrs) 13.5 mg intrauterine device (Amanda) Allergies Allergy/AdvReac Type Severity Reaction Status Date / Time morphine Allergy ADR-Nausea Verified 04/26/24 14:59 Penicillins Allergy ALGY-Hives Verified 04/26/24 14:59 sumatriptan [From Imitrex] AdvReac Mild chest Verified 04/26/24 14:59 tightness / burning in head Current Medications Generic Name Dose Route Start Last Admin Trade Name Freq PRN Reason Stop Dose Admin Sodium Chloride 1,000 mls @ 30 mls/hr 05/04/24 08:15 05/04/24 08:40 Sodium Chloride 0.9% IV 05/05/24 08:14 30 mls/hr .Q24H ESCOBAR Administration Ondansetron HCl 4 mg 05/04/24 08:02 05/04/24 08:56 Ondansetron 2 Mg/Ml Sdv 2 Ml IVP 4 mg Q5M PRN Administration NAUSEA AND VOMITING PFSH Anesthesia Medical History No pertinent past medical history neghx: htn,dm,thyroid,dvt/pe PCP: Dr. Wahl History of 2019 novel coronavirus disease (COVID-19) Migraine without aura Anxiety Depression Asthma Surgical History Status post myringotomy with insertion of tube History of tonsillectomy History of laparoscopic cholecystectomy (~07/2017) Family History Grandmother Cancer Stroke Maternal Grandfather Diabetes Maternal Cancer Hypertension Maternal Mother Psychiatric illness Depression and anxiety Diabetes Hypertension Sister Psychiatric illness Depression and anxiety Thyroid disease Denies family history of Colon cancer Ovarian cancer Hypercholesteremia Breast cancer Uterine cancer Social History Smoking and tobacco/nicotine status: never used tobacco/nicotine Substance/Drug Use: never Data Anesthesia Cardiac Studies: No Data to Display
--- NOTE | 2024-05-04 10:41 | SUR.OPER ---
MIRENA INSERTION S/N [id number] EXP 06/10 [facility] [id number]
--- NOTE | 2024-05-04 10:45 | PM.OP ---
Operative Report Date of procedure: May 04, 2024 Pre-op diagnosis: intrauterine device, lost strings desires new intrauterine device Post-op diagnosis: same Post-op findings: normal endometrial cavity No polyps / fibroids Minimal endometrial tissue Intrauterine device in endometrial cavity, intact and complete Endometrial cavity intact following procedure Procedure done: hysteroscopy removal of intrauterine device insertion of new mirena intrauterine device Implants: mirena intrauterine device Specimens removed/disposition: intrauterine device, discarded Surgeon: David Brown MD Anesthesia: MAC Estimated blood loss (mL): 0 Complications: none Findings: normal endometrial cavity No polyps / fibroids Minimal endometrial tissue Intrauterine device in endometrial cavity, intact and complete Endometrial cavity intact following procedure Condition: stable Disposition: PACU Brief History: 23 y.o. with intrauterine device, lost strings, desired removal also desires new mirena intrauterine device Procedure: Informed consent signed. Patient was taken to the operating room. Anesthesia was induced. Patient was placed in dorsolithotomy position, prepped and draped for hysteroscopy. A bivalve speculum was placed in the vagina. The anterior lip of the cervix was grasped with a sharp-toothed tenaculum. The cervix was serially dilated with Hegar dilators. . A hysteroscope was placed into the endometrial cavity. The endometrial cavity was seen to be normal. There were no polyps or fibroids. There was a minimal amount of endometrial tissue. The intrauterine device was seen in the endometrial cavity. The device was removed using a hysteroscopic grasper. The intrauterine device was seen to be complete and intact and this was discarded. The endometrial cavity was seen to be intact. The hysteroscope was then removed. The mirena intrauterine device was then prepared, placed into the endometrial cavity and deployed. A 3-4 cm string was left at the cervical os. The sharp-toothed tenaculum was removed. There was no bleeding from the endometrial cavity or cervix. The patient was then placed supine and awakened and taken to the PACU. Postop condition: stable EBL: none Sponge and instruments counts were normal x 2 Complications: none
[2024-05-04] MEDS: fentaNYL 50 mcg/mL INJ 2mL IVP (10:50)
--- NOTE | 2024-05-04 11:25 | SUR.PHASEII ---
PT'S CONDITION REVIEWED WITH DOCTOR HANKS.
[2024-05-04] MEDS: acetaminophen 1,000 MG/100 ML PIGGYBACK 400 MG IV (11:34)
[2024-05-04] MEDS: ketorolac 30 mg/mL INJ IVP (11:34)
--- NOTE | 2024-05-04 12:15 | ANE.PACU2 ---
Inpatient post-anesthesia follow up: Airway intact: Yes Vital signs: Temperature 97.8 F Pulse Rate 59 Respiratory Rate 16 Blood Pressure 114/73 Pulse Oximetry 99 Oxygen Delivery Me thod Room Air Oxygen Flow Rate Fraction of Inspir ed Oxygen Hydration adequate: Yes Nausea and vomiting: No Pain level: 1 Mental status: Baseline
== END 2024-05-04 12:15 | disposition home or self-care (01) ==
PROVIDERS: PCP Family Medicine; Visit Provider Obstetrics & Gynecology
PROC: 0UJD8ZZ Inspection of Uterus and Cervix, Via Natural or Artificial Opening Endoscopic (ICD-10-PCS; CPT 58555; principal; 2024-05-04 10:00)
PROC: (CPT 58301; 2024-05-04 10:00)
PROC: (CPT 58300; 2024-05-04 10:00)
DX: T83.32XA Displacement of intrauterine contraceptive device, initial encounter (principal); Z88.5 Allergy status to narcotic agent; Z88.0 Allergy status to penicillin; Z88.8 Allergy status to other drugs, medicaments and biological substances; J45.909 Unspecified asthma, uncomplicated
CPT/HCPCS: 58300; 58579; 81025; J0131; J1100; J1885; J2250; J2405; J2704; J3010; J7030